=== PATIENT | male | born 1960 | race Caucasian/White ===

== ENCOUNTER 2024-12-06 17:28 | Inpatient (IN) | payer MEDICARE, SELFPAY ==
[2024-12-06 17:29] VITALS: BP 107/72; PULSE 75; RESP 16; TEMP 36.8; O2SAT 100; BMI 22.7
--- NOTE | 2024-12-06 18:11 | US_ITS ---
PROCEDURE: TESTICULAR WITH ARTERIAL FLOW REASON FOR EXAM: 64-year-old male, concern for left scrotal mass versus abscess versus tumor. TECHNIQUE: Michael scale imaging and color and spectral Doppler analysis of the scrotal contents. COMPARISON: None. FINDINGS: RIGHT testicle: 4.6 x 1.8 x 2.8 cm Homogeneous echotexture. No intratesticular mass. Right epididymis: Moderate-sized right epididymal head cyst. Other findings: Moderate hydrocele. No large varicocele. LEFT testicle: 4.2 x 1.8 x 2.7 cm Homogeneous echotexture. No intratesticular mass. Left epididymis: Unremarkable Other findings: No hydrocele or large varicocele. Just lateral to the left testicle, there is a large palpable mass measuring 4.2 x 2.2 x 3.0 cm, with a large internal solid component measuring 2.7 x 1.7 x 1.8 cm. This demonstrates mild intra arterial vascular flow on Doppler interrogation. DOPPLER FINDINGS: Symmetric color doppler blood flow signal at both testes. Normal arterial inflow and venous outflow waveforms at both testes. US/Testicular with Arterial Flow IMPRESSION: Large palpable mass just lateral to the left testicle demonstrating internal so lid component and arterial vascular flow. Differential diagnoses for peritesticular tumors include metastatic disease, pl asmacytoma, leiomyosarcoma, or lymphoma. Surgical consultation recommended. Reading Location: [id number]
--- NOTE | 2024-12-06 18:13 | EDS_ITS ---
HPI History of Present Illness Chief Complaint: Male Pain/Injury Informant: patient Narrative Narrative: 64-year-old male presents with left scrotal mass. Patient states for decades he has had a small bump just posterior lateral to his left testicle. Is never gi yazmin him any problems but in the past month it is progressively swollen and become more painful. He is a long-term smoker. He denies any urination issues. Denies any bowel issues. He reports no fevers. PFSH PFSH Home Medications ?Medication ?Instructions ?Recorded ?Last Taken ?Type NK 12/06/24 Unknown History Allergy/AdvReac Type Severity Reaction Status Date / Time No Known Allergies Allergy Verified 12/06/24 17:28 Surgical History H/O eye surgery Social History Smoking Status: Current every day smoker tobacco type: cigarettes ROS ROS ED Constitutional Constitutional ED: Denies chills, fever(s) or weight loss Eyes Eyes: Denies change in vision or diplopia ENT ENT ED: Denies ear pain, rhinorrhea or sore throat Cardiovascular Cardiovascular: Denies chest pain, orthopnea, palpitations or racing heartbeat Respiratory/Chest Respiratory/Chest: Reports cough; Denies dyspnea or orthopnea Gastrointestinal Gastrointestinal: Denies abdominal pain, diarrhea, nausea or vomiting Genitourinary Genitourinary ED: Reports other Details: Left scrotal mass/pain ; Denies dysuria, hematuria or urinary frequency Musculoskeletal Musculoskeletal: Denies arthralgias or myalgias Integumentary Denies abscess or rash Neurologic Neurologic: Denies headache(s) or weakness Psychiatric Psychiatric: Denies anxiety, depression, suicidal ideation or suicidal thoughts Endocrine Endocrinology: Denies polydipsia, polyphagia or polyuria Allergic/Immunologic Allergic/Immunologic ED: Denies mouth swelling, tongue swelling or urticaria EXAM Physical Exam Const Vital Signs: 12/06/24 17:29 12/06/24 21:28 Temperature 98.2 F Temperature Source Temporal Pulse Rate 75 71 Respiratory Rate 16 16 Blood Pressure 107/72 110/70 Blood Pressure Mean 83 83 Pulse Ox 100 97 Oxygen Delivery Method Room Air Room Air Positive well nourished and well developed General Appearance ED: well developed and NAD HEENT Reports normocephalic, head/scalp atraumatic and moist mucous membranes Eyes PERRL and EOMs intact bilaterally Neck no lymphadenopathy, supple and no JVD Resp normal respiratory effort and clear to auscultation bilaterally Cardio regular rate, regular rhythm and no murmurs GI normal to inspection, nondistended, normoactive bowel sounds and non-tender Palpation: soft Narrative: exam was performed in the presence of female nurse no well. The testicular e xam appears normal bilaterally. He is uncircumcised. Left posterior lateral scrotal wall appears to have a large swelling of about 6 cm in nature. It is very tender to palpation. I do not appreciate any pustules on the scrotal wall. There is some mild erythema. Back/Spine no CVA tenderness and normal ROM Extremity normal to inspection General Extremety ED: Negative for edema General Extremity: Negative for edema Neuro oriented x3 and CN's II-XII intact bilaterally Sensorium / Orientation: alert Motor Exam: strength 5/5 throughout Psych mental status grossly normal Mood & Affect: Negative for depressed or tearful Skin no rashes or lesions noted and no wounds MDM MDM MDM Narrative Medical decision making narrative: Differential diagnosis includes but not limited to scrotal abscess malignancy cystocele hernia testicular torsion epididymitis orchitis Urinalysis demonstrates 5-10 white cells 5-10 red blood cells 1+ bacteria negative nitrates. A testicular ultrasound was obtained. This was read by radiology reviewed by myself. There is a large mass just lateral to the left testicle with a solid component and arterial vascular flow. This is concerning for malignancy. I updated the patient. My recommendation is that we go ahead and obtain chest and abdominal imaging to assist in surgical evaluation. He stated that he was comfortable with this. White count returns at 20.3. CT of the chest abdomen pelvis was obtained. On review of the CT imaging and the read it is felt that coupled with the rapid onset of swelling and pain the 20,000 white count and a few foci of air is most likely an abscess. I spoke with Dr. Hickey who states that he is willing to take him to surgery tomorrow. I will speak with the hospitalist regarding admission. Blood cultures were obtained and the patient received vancomycin and Zosyn. Due to computer downtime I was not able I put the vancomycin or the admission order in at the expected time. History & Record Review Discussion w/independent historian: Patient Lab Data Attestation: I reviewed the patient's lab results. Labs: Laboratory Results - last 24 hr 12/06/24 12/06/24 18:27 20:32 WBC 20.3 H RBC 4.47 L Hgb 14.3 Hct 41.3 MCV 92.4 MCH 32.0 MCHC 34.6 RDW Std Deviation 43.0 RDW Coeff of Jimi 12.7 Plt Count 466 H MPV 9.4 Immature Gran % (Auto) 1.800 H Neut % (Auto) 75.2 H Lymph % (Auto) 11.4 L Josephine % (Auto) 10.2 H Eos % (Auto) 0.8 Baso % (Auto) 0.6 Absolute Neuts (auto) 15.3 H Absolute Lymphs (auto) 2.31 Nucleated RBC % 0 Differential Comment SCANNED Diff Path Review May foll Sodium 135 L Potassium 4.0 Chloride 103 Carbon Dioxide 25.0 Anion Gap 7 BUN 12 Creatinine 0.70 Estim Creat Clear Calc 97.64 Est GFR (MDRD) Af Amer 145 Est GFR (MDRD) Non-Af 119 BUN/Creatinine Ratio 17.1 Glucose 87 Calcium 8.8 Total Bilirubin 0.30 Direct Bilirubin 0.12 AST 19 ALT 29 Alkaline Phosphatase 92 Total Protein 7.3 Albumin 2.9 L Globulin 4.4 H Urine Color Yellow Urine Clarity Clear Urine pH 6.0 Ur Specific [place] 1.020 Urine Protein 30 H Urine Glucose (UA) Normal Urine Ketones Negative Urine Occult Blood 25 H Urine Nitrite Negative Urine Bilirubin Negative Urine Urobilinogen 8 H Ur Leukocyte Esterase 25 H Urine RBC 5-10 SEEN Urine WBC 5-10 SEEN Ur Squamous Epith Cells 0-5 SEEN Urine Bacteria 1+ Urine Mucus 2+ Radiography Diagnostic Testing: Clinical Impression(s) from Imaging Studies Testicular Ultrasound 12/06/24 18:11 IMPRESSION: Large palpable mass just lateral to the left testicle demonstrating internal solid component and arterial vascular flow. Differential diagnoses for peritesticular tumors include metastatic disease, plasmacytoma, leiomyosarcoma, or lymphoma. Surgical consultation recommended. Reading Location: [facility] Chest/Abdomen/Pelvis CT 12/06/24 20:16 IMPRESSION: 1. Thick-walled peripherally enhancing fluid collection in the left lateral scrotum containing a couple foci of gas and complex internal debris. Findings concerning for abscess. surgical consultation recommended. 2. Mildly prominent bilateral inguinal chain lymph nodes which may be reactive. No other adenopathy. 3. Mild reticulonodular opacities in the left upper lobe, likely infectious/inflammatory. 4. Several scattered bilateral punctate pulmonary nodules, largest measuring 4 mm in the left upper lobe. 12 month follow-up can be performed to ensure stability. 5. Enlarged prostate protruding into the bladder base. Correlate with PSA level. One or more dose reduction techniques were used (e.g., Automated exposure control, adjustment of the mA and/or kV according to patient size, use of iterative reconstruction technique). Reading Location: [facility] Management Discussion w/another healthcare provider: Hospitalist (Dr Fang) and [facility] (Dr Hickey) Discharge Plan Dx/Rx/DC Orders Clinical Impression: Abscess, scrotum, Pain in scrotum Disposition Disposition: Acute Care Hospital [facility]
[2024-12-06] MEDS: oxyCODONE 5 MG Tablet 10 MG PO (18:17)
[2024-12-06 18:35] LABS: Color, Urine Yellow (Yellow); Glucose, Dipstick Normal (Normal); Ketone-Dipstick Negative (Negative); Leukocyte Esterase-Dipstick 25 /ul (Negative); Nitrite-Dipstick Negative (Negative); Occult Blood-Urine 25 /ul (Negative); Protein-Dipstick 30 mg/dl (Negative); Urine Bilirubin Dipstick Negative (Negative); Urine Clarity Clear (Clear); Urine Urobilinogen 8 mg/dl (Normal)
[2024-12-06 18:52] LABS: Bacteria 1+ /hpf (None Seen); Mucous, Urine 2+ /hpf (<or=2+); Red Blood Cells-Urine 5-10 SEEN /hpf (0-5); Squamous Epithelial Cells - UA 0-5 SEEN /hpf (0-5); White Blood Cells 5-10 SEEN /hpf (0-5)
--- NOTE | 2024-12-06 20:16 | CT_ITS ---
PROCEDURE: CT CHEST, ABD, PEL W/CONTRAST REASON FOR EXAM: Testicular mass, metastatic disease TECHNIQUE: Multiple contiguous axial images of the chest abdomen and pelvis were obtained after the administration of intravenous contrast. Two-dimensional coronal and sagittal reformatted images were reconstructed. Low-dose imaging technique was utilized. COMPARISON: None. FINDINGS: Chest. Heart size is within normal limits. Mild LAD coronary artery calcifications. No significant pericardial effusion. Mildly calcified nonaneurysmal thoracic aorta. Normal caliber pulmonary arteries without central filling defects. No suspicious adenopathy. Superficial soft tissues are within normal limits. Central airways are patent. Mild emphysema. Mild reticulonodular opacities in the left apex. No focal consolidation, pleural effusion or pneumothorax. No pulmonary mass. Several scattered small bilateral pulmonary nodules, largest in the right upper lobe measuring 3 mm and largest in the left upper lobe measuring 4 mm. No acute osseous abnormality. Abdomen/pelvis. Liver, spleen, and adrenal glands are intact. Gallbladder is satisfactory. No significant biliary ductal dilation. Kidneys enhance symmetrically. No suspicious renal mass, calculi or hydronephrosis. Mild diffuse bladder wall thickening. Enlarged prostate with a small associated nodule protruding into the bladder base. No bowel obstruction, focal bowel wall thickening or significant perienteric inflammation. Normal appendix. No pelvic free fluid. No free air. Calcified nonaneurysmal abdominal aorta. No suspicious mesenteric or retroperitoneal adenopathy. Several prominent bilateral cervical chain lymph nodes. Diffuse scrotal wall thickening. Peripherally enhancing thick-walled fluid collection in the left lateral scrotum measuring at least 3.7 x 2.7 x 3.2 cm containing a couple foci of gas. Some complex internal debris noted. Right epididymal head cyst. No acute osseous abnormality. Degenerative changes of the spine. CT/CT Chest, Abd, Pel w/Contrast IMPRESSION: 1. Thick-walled peripherally enhancing fluid collection in the left lateral scr otum containing a couple foci of gas and complex internal debris. Findings concerning for abscess. surgical consultation re commended. 2. Mildly prominent bilateral inguinal chain lymph nodes which may be reactive. No other adenopathy. 3. Mild reticulonodular opacities in the left upper lobe, likely infectious/inf lammatory. 4. Several scattered bilateral punctate pulmonary nodules, largest measuring 4 mm in the left upper lobe. 12 month follow-up can be performed to ensure stability. 5. Enlarged prostate protruding into the bladder base. Correlate with PSA leve l. One or more dose reduction techniques were used (e.g., Automated exposure contr ol, adjustment of the mA and/or kV according to patient size, use of iterative reconstruction technique). Reading Location: [facility]
[2024-12-06] MEDS: Morphine 4 MG/ML Syringe IV (20:30)
[2024-12-06] MEDS: Ondansetron 4 MG/2 ML Vial IV (20:31)
[2024-12-06 21:01] LABS: AST(SGOT) 19 U/L (15-37); Alanine Aminotransfer ALT/SGPT 29 U/L (16-61); Albumin, Serum 2.9 g/dL (3.2-5.0); Alkaline Phosphatase 92 U/L (45-117); Anion Gap 7 (5-15); BUN 12 mg/dL (7-18); BUN/Creat Ratio 17.1 RATIO (10-20); Bilirubin, Direct 0.12 mg/dL (0.00-0.30); Calcium,Total 8.8 mg/dL (8.5-10.1); Chloride 103 mmol/L (98-107); EST Glomerular Filtration Rate 119 mL/min (>60); Est Glom Filt Rate - Afr Amer 145 mL/min (>60); Estimated Creatinine Clearance 97.64 ml/min; Globulin 4.4 g/dL (2.2-4.2); Glucose 87 mg/dL (74-106); Protein, Total 7.3 g/dL (6.4-8.2); Sodium Level 135 mmol/L (136-145)
[2024-12-06 21:10] LABS: Absolute Lymphocyte Count 2.31 X10^3/uL (0.83-4.51); Absolute Neutrophil Count 15.3 X10^3/uL (2.0-7.7); Basophil# 0.12 X10^3/uL; Basophil% 0.6 % (0-1); Eosinophil# 0.16 X10^3/uL; Eosinophils% 0.8 % (0-5); Hematocrit 41.3 % (40-54); Hemoglobin 14.3 g/dL (13.0-16.5); Lymphocyte # 2.31 X10^3/ul (0.83-4.51); Lymphocyte % 11.4 % (19-41); Mean Corp Hgb Conc 34.6 g/dL (32-36); Mean Corpuscular Volume 92.4 fL (80-94); Mean Platelet Vol. 9.4 fl (6.2-12.0); Monocyte# 2.08 X10^3/uL; Monocyte% 10.2 % (0-10); NRBC Flagged by Analyzer 0 % (0-5); Neutrophil # 15.26 X10^3/uL (2.7-7.7); Neutrophil % 75.2 % (47-70); POSITIVE DIFFERENTIAL YES; Platelet Count 466 K/mm3 (150-450); RBC Distribution Width CV 12.7 % (11.6-14.6); Red Blood Count 4.47 M/mm3 (4.6-6.2); White Blood Count 20.3 K/mm3 (4.4-11.0)
[2024-12-06 21:16] LABS: Differential Indicated SCAN CRITERIA MET
[2024-12-06 21:28] VITALS: BP 110/70; PULSE 71; RESP 16; O2SAT 97
[2024-12-06 21:38] LABS: Differential Comment SCANNED
[2024-12-06] MEDS: Piperacil/Tazobactam 4.5 GM in 0.9% Normal Saline (100mL MB+) 100 ML IV (22:10)
--- NOTE | 2024-12-06 22:33 | PCM.HP.STD ---
[facility] - General General Date of Admission: 12/06/24 Date of Service: 12/06/24 Chief Complaint: Left Scrotal Swelling. HPI Narrative ANA TAPIA, is a 64 M with a past medical history of chronic tobacco abuse and history of eye surgery who presents to [facility] ER complaining of Left scrotal swelling. Mr. Tapia reports his symptoms began approximately 1 month prior to admission with a small bump just posterior and lateral to his Left testicle that has been progressively enlarged and become more painful since that time. Patient further explained that he has had a small bump lateral to his left testicle for decades it is not giving him problems in the past or any similar previous episodes. He denies dysuria, hematuria or urinary frequency. He also denies fevers, chills, abdominal pain, nausea, vomiting, diarrhea, chest pain, arthralgias, myalgias, headache or rash. In the ER he underwent testicular ultrasound which revealed large palpable mass just lateral to his left testicle demonstrating internal solid component and arterial vascular flow with differential diagnosis including peritesticular tumors with urologist consultation recommended followed by a CT scan of the chest abdomen pelvis which revealed thick-wall peripherally enhancing fluid collection in the left lateral scrotum containing multiple foci of gas and complex internal debris with findings concerning for abscess with surgical consultation recommended in addition to mildly prominent bilateral inguinal chain lymph nodes which may be reactive with UA positive for acute cystitis; with microscopic hematuria with corresponding laboratory evidence of Sepsis with Leukocytosis of 20.3 K and Left-shift of 1.8% present on admission. The ER physician spoke to the urologist on-call who requested patient be admitted to the hospitalist service with planned surgical intervention in a.m. and appreciated in advance. Patient was then admitted to the ICU for ongoing care for a stay that is expected to extend beyond 2 midnights. PFSH Home Medications ?Medication ?Instructions ?Recorded ?Last Taken ?Type NK 12/06/24 Unknown History Allergy/AdvReac Type Severity Reaction Status Date / Time No Known Allergies Allergy Verified 12/06/24 17:28 Surgical History H/O eye surgery Social History Smoking Status: Current every day smoker tobacco type: cigarettes ROS ROS Narrative Review of Systems: Constitutional: Patient denies fever, chills or weight loss. Eyes: Patient denies changes in vision or discharge from eyes. ENT: Patient denies runny nose, sore throat or ear pain. Resp: Patient admits to cough but he denies shortness of breath. CV: Patient denies chest pain, palpitations, heart racing or lower extremity edema. GI: Patient denies abdominal pain, nausea, vomiting, diarrhea or constipation. : Patient admits to left scrotal mass with tenderness to palpation but he denies dysuria, hematuria or urinary frequency. MSK: Patient denies arthralgias or myalgias Skin: Patient denies rash, abscess, wounds or jaundice. Psych: Patient denies symptoms of uncontrolled depression or anxiety. Neuro: Patient denies headache, paresthesias or focal neurologic deficits. Allergy: Patient denies lip swelling, tongue swelling or urticaria. Hematology: Patient denies easy bleeding or easy bruisability. Endocrinology: Patient denies polyuria, polydipsia or polyphagia. 14 point review of systems otherwise negative save for positives noted above HPI. Vital Signs Vital Signs Vital Signs: 12/06/24 17:29 12/06/24 21:28 Temperature 98.2 F Temperature Source Temporal Pulse Rate 75 71 Respiratory Rate 16 16 Blood Pressure 107/72 110/70 Blood Pressure Mean 83 83 Pulse Ox 100 97 Oxygen Delivery Method Room Air Room Air Weight Weight: 167 lb 8.821 oz Body Mass Index (BMI) 22.7 Physical Exam Const alert, oriented x3, no apparent distress, average body habitus and healthy appearing General Appearance: cooperative HEENT normocephalic, head/scalp atraumatic, hearing grossly normal bilaterally and moist oral mucous membranes Eyes PERRL, EOMs intact bilaterally and conjunctivae normal Neck no lymphadenopathy, supple and no JVD Resp normal respiratory effort, no retractions, no use of accessory muscles and clear to auscultation bilaterally Cardio regular rate and regular rhythm GI normal to inspection, nondistended, normoactive bowel sounds, soft to palpation, non-tender and non-distended Extremity normal to inspection, full ROM and no clubbing, cyanosis or edema Skin Skin Narrative: Patient is uncircumcised and has a left posterior lateral scrotal wall swelling ~6 cm with exquisite tenderness noted to palpation and mild erythema. Neuro oriented x3, CN's II-XII intact bilaterally, moves all extremities and no focal motor deficits Sensorium / Orientation: awake, alert, oriented to person, oriented to place and oriented to time Speech: speech normal Psych affect normal Results Medical Records Data Attestation: I reviewed the patient's medical records Lab / Micro Data Attestation: I reviewed the patient's lab results. 12/06/24 20:32 12/06/24 20:32 Labs: Laboratory Results - last 24 hr 12/06/24 18:27: Urine Color Yellow, Urine Clarity Clear, Urine pH 6.0, Ur Specific [place] 1.020, Urine Protein 30 H, Urine Glucose (UA) Normal, Urine Ketones Negative, Urine Occult Blood 25 H, Urine Nitrite Negative, Urine Bilirubin Negative, Urine Urobilinogen 8 H, Ur Leukocyte Esterase 25 H, Urine RBC 5-10 SEEN, Urine WBC 5-10 SEEN, Ur Squamous Epith Cells 0-5 SEEN, Urine Bacteria 1+, Urine Mucus 2+ 12/06/24 20:32: WBC 20.3 H, RBC 4.47 L, Hgb 14.3, Hct 41.3, MCV 92.4, MCH 32.0, MCHC 34.6, RDW Std Deviation 43.0, RDW Coeff of Jimi 12.7, Plt Count 466 H, MPV 9.4, Immature Gran % (Auto) 1.800 H, Neut % (Auto) 75.2 H, Lymph % (Auto) 11.4 L, [place] % (Auto) 10.2 H, Eos % (Auto) 0.8, Baso % (Auto) 0.6, Absolute Neuts (auto) 15.3 H, Absolute Lymphs (auto) 2.31, Nucleated RBC % 0, Differential Comment SCANNED, Diff Path Review February, Sodium 135 L, Potassium 4.0, Chloride 103, Carbon Dioxide 25.0, Anion Gap 7, BUN 12, Creatinine 0.70, Estim Creat Clear Calc 97.64, Est GFR (MDRD) Af Amer 145, Est GFR (MDRD) Non-Af 119, BUN/Creatinine Ratio 17.1, Glucose 87, Calcium 8.8, Total Bilirubin 0.30, Direct Bilirubin 0.12, AST 19, ALT 29, Alkaline Phosphatase 92, Total Protein 7.3, Albumin 2.9 L, Globulin 4.4 H Imaging Radiology Impression Testicular Ultrasound 12/06/24 18:11 IMPRESSION: Large palpable mass just lateral to the left testicle demonstrating internal solid component and arterial vascular flow. Differential diagnoses for peritesticular tumors include metastatic disease, plasmacytoma, leiomyosarcoma, or lymphoma. Surgical consultation recommended. Reading Location: [facility] Chest/Abdomen/Pelvis CT 12/06/24 20:16 IMPRESSION: 1. Thick-walled peripherally enhancing fluid collection in the left lateral scrotum containing a couple foci of gas and complex internal debris. Findings concerning for abscess. surgical consultation recommended. 2. Mildly prominent bilateral inguinal chain lymph nodes which may be reactive. No other adenopathy. 3. Mild reticulonodular opacities in the left upper lobe, likely infectious/inflammatory. 4. Several scattered bilateral punctate pulmonary nodules, largest measuring 4 mm in the left upper lobe. 12 month follow-up can be performed to ensure stability. 5. Enlarged prostate protruding into the bladder base. Correlate with PSA level. One or more dose reduction techniques were used (e.g., Automated exposure control, adjustment of the mA and/or kV according to patient size, use of iterative reconstruction technique). Reading [facility] Assessment & Plan Assessment/Plan (1) Abscess, scrotum: (2) Pain in scrotum: (3) Acute cystitis with hematuria: (4) Tobacco abuse: PLAN: Plan 1. CT scan of the chest abdomen pelvis which revealed thick-wall peripherally enhancing fluid collection in the Left lateral scrotum containing multiple foci of gas and complex internal debris with findings concerning for Abscess with surgical consultation recommended in addition to mildly prominent bilateral inguinal chain lymph nodes which may be reactive with UA positive for Acute Cystitis; with microscopic hematuria with corresponding laboratory evidence of Sepsis with Leukocytosis of 20.3 K and Left-shift of 1.8% present on admission - Admit to ICU for treatment under the Sepsis protocol. Continue empiric IV piperacillin-tazobactam and IV vancomycin begun in the ER and await culture and sensitivity data. Keep strict NPO for planned urologic surgery in the AM. Give ketorolac prn for [id number] (level 1-5/10) pain. Give morphine IV prn for severe (level 6-10/10) pain. Finally, urologist on-call was made aware of this patient with formal consultation pending in the AM which is appreciated in advance. 2. Chronic Tobacco Abuse complicating #1 - Tobacco Cessation will be strongly encouraged with Nicotine patch offered to control cravings. 3. History of eye surgery - Noted. 4. DVT/GI prophylaxis - SCD's only due to planned surgery in AM. Pantoprazole IV daily. Total time: Approximately (but not less than) 40 minutes. Charges/Coding Visit Charges Inpatient E&M: 06893 Init Hosp L1
[2024-12-06 22:42] VITALS: BP 138/92; PULSE 79; RESP 14; TEMP 36.9; O2SAT 99
[2024-12-06 22:43] VITALS: BP 138/92; PULSE 79; RESP 17; TEMP 36.9; O2SAT 98
[2024-12-06] MEDS: Vancomycin HCl 1,250 MG in 0.9% Normal Saline (250mL Bag) 250 ML 167 MG IV (23:07)
[2024-12-06 23:24] LABS: Lactic Acid 1.5 mmol/L (0.4-1.9)
[2024-12-06 23:54] VITALS: BP 117/67; PULSE 61; RESP 14; TEMP 36.6; O2SAT 98; BMI 22.4
[2024-12-07] VITALS (19 sets, daily range): BP systolic 85–130; BP diastolic 47–99; PULSE 60–82; RESP 14–18; TEMP 36.3–36.9; O2SAT 92–97; BMI 20.4
[2024-12-07] MEDS: 0.9% Normal Saline (1000mL) 1,000 ML 999 ML IV ×2 (00:41→02:16)
--- NOTE | 2024-12-07 00:55 | PCM.RX.CS ---
Consult Antibiotic Management Pharmacy has been consulted to manage selected antibiotic: Vancomycin Type of Intervention Type of Consult: New start Labs Labs: Sodium 135 mmol/L (136-145) L 12/06/24 20:32 Potassium 4.0 mmol/L (3.5-5.1) 12/06/24 20:32 Chloride 103 mmol/L (98-107) 12/06/24 20:32 Carbon Dioxide 25.0 mmol/L (21.0-32.0) 12/06/24 20:32 Anion Gap 7 (5-15) 12/06/24 20:32 BUN 12 mg/dL (7-18) 12/06/24 20:32 Creatinine 0.70 mg/dL (0.70-1.30) 12/06/24 20:32 Est GFR (MDRD) Af Amer 145 mL/min (>60) 12/06/24 20:32 Est GFR (MDRD) Non-Af 119 mL/min (>60) 12/06/24 20:32 BUN/Creatinine Ratio 17.1 RATIO (10-20) 12/06/24 20:32 Glucose 87 mg/dL (74-106) 12/06/24 20:32 Dosing Weight Weight used for dosin.2 kg Estimated Creatinine Clearance Estimated Creatinine Clearance: 98 Goal Trough Goal Trough: 15-20 mcg/mL Pharmacy Plan for Drug Dosing Pharmacy Plan for Drug Dosing: Pharmacy Service will continue to monitor and adjust dosing as required. Follow-Up Labs Follow-Up Labs: Trough: Vancomycin Date/Time Labs Ordered Labs to be done on [date and time ordered]: 12/08/24 @1037
[2024-12-07] MEDS: Piperacil/Tazobactam 3.375 GM in 0.9% Normal Saline (50mL MB+) 50 ML IV ×3 (05:04→22:52)
--- NOTE | 2024-12-07 06:54 | PCM.PN.HOSP ---
Subjective Subjective Had been dealing the scrotal swelling and pain for weeks, but he was reluctant to seek attention given embarrassment. Objective Data Objective Data Vital Signs: Vital Signs Temp Pulse Resp BP Pulse Ox O2 Del Method 36.9 C 63 16 97/57 L 92 Room Air 12/07/24 06:00 12/07/24 06:00 12/07/24 06:00 12/07/24 06:00 12/07/24 06:00 12/07/24 06:00 Oxygen Delivery Method Room Air Weight: 68.2 kg Body Mass Index (BMI) 20.4 Intake & Output: Intake and Output for Last 24 Hours 12/05/24 12/06/24 12/07/24 23:59 23:59 23:59 Intake Total 100 / 100 2275 / 2275 Balance 100 / 100 2275 / 2275 Lab / Micro Data 12/07/24 10:15 12/06/24 20:32 Labs: Laboratory Results - last 24 hr 12/06/24 18:27: Urine Color Yellow, Urine Clarity Clear, Urine pH 6.0, Ur Specific [place] 1.020, Urine Protein 30 H, Urine Glucose (UA) Normal, Urine Ketones Negative, Urine Occult Blood 25 H, Urine Nitrite Negative, Urine Bilirubin Negative, Urine Urobilinogen 8 H, Ur Leukocyte Esterase 25 H, Urine RBC 5-10 SEEN, Urine WBC 5-10 SEEN, Ur Squamous Epith Cells 0-5 SEEN, Urine Bacteria 1+, Urine Mucus 2+ 12/06/24 20:32: WBC 20.3 H, RBC 4.47 L, Hgb 14.3, Hct 41.3, MCV 92.4, MCH 32.0, MCHC 34.6, RDW Std Deviation 43.0, RDW Coeff of Jimi 12.7, Plt Count 466 H, MPV 9.4, Immature Gran % (Auto) 1.800 H, Neut % (Auto) 75.2 H, Lymph % (Auto) 11.4 L, [place] % (Auto) 10.2 H, Eos % (Auto) 0.8, Baso % (Auto) 0.6, Absolute Neuts (auto) 15.3 H, Absolute Lymphs (auto) 2.31, Nucleated RBC % 0, Differential Comment SCANNED, Diff Path Review February, Sodium 135 L, Potassium 4.0, Chloride 103, Carbon Dioxide 25.0, Anion Gap 7, BUN 12, Creatinine 0.70, Estim Creat Clear Calc 97.64, Est GFR (MDRD) Af Amer 145, Est GFR (MDRD) Non-Af 119, BUN/Creatinine Ratio 17.1, Glucose 87, Calcium 8.8, Total Bilirubin 0.30, Direct Bilirubin 0.12, AST 19, ALT 29, Alkaline Phosphatase 92, Total Protein 7.3, Albumin 2.9 L, Globulin 4.4 H 12/06/24 22:53: Lactic Acid 1.5 12/07/24 01:00: Blood Type A POSITIVE, Antibody Screen NEGATIVE Radiography Diagnostic Testing: Radiology Impression Testicular Ultrasound 12/06/24 18:11 IMPRESSION: Large palpable mass just lateral to the left testicle demonstrating internal solid component and arterial vascular flow. Differential diagnoses for peritesticular tumors include metastatic disease, plasmacytoma, leiomyosarcoma, or lymphoma. Surgical consultation recommended. Reading Location: [facility] Chest/Abdomen/Pelvis CT 12/06/24 20:16 IMPRESSION: 1. Thick-walled peripherally enhancing fluid collection in the left lateral scrotum containing a couple foci of gas and complex internal debris. Findings concerning for abscess. surgical consultation recommended. 2. Mildly prominent bilateral inguinal chain lymph nodes which may be reactive. No other adenopathy. 3. Mild reticulonodular opacities in the left upper lobe, likely infectious/inflammatory. 4. Several scattered bilateral punctate pulmonary nodules, largest measuring 4 mm in the left upper lobe. 12 month follow-up can be performed to ensure stability. 5. Enlarged prostate protruding into the bladder base. Correlate with PSA level. One or more dose reduction techniques were used (e.g., Automated exposure control, adjustment of the mA and/or kV according to patient size, use of iterative reconstruction technique). [facility] Physical Exam Const alert and no apparent distress Constitutional Narrative: left sided scrotal erythema and induration. HEENT head/scalp atraumatic and moist oral mucous membranes Cardio regular rate, regular rhythm, S1 normal heart sound and S2 normal heart sound GI normal to inspection, nondistended, normoactive bowel sounds, soft to palpation, non-tender, non-distended and hepatosplenomegaly Extremity normal to inspection, full ROM and no clubbing, cyanosis or edema Neuro Sensorium / Orientation: awake, alert, oriented to person and oriented to place Assessment & Plan Assessment/Plan (1) Abscess, scrotum: PLAN: CT notes 2.7x3.2 fluid collection with foci of gas abx w pip/tazo and vancomycin consultation. Pt that have surgery this afternoon. Follow up blood cultures. PLAN: Plan VTE prophylaxis: SCDs. Charges/Coding Visit Charges Inpatient E&M: 66492 Subs Hosp L2
--- NOTE | 2024-12-07 07:54 | CON.PCM.CC_ITS ---
Assessment & Plan Assessment/Plan (1) Abscess, scrotum: PLAN: Plan RECOMMENDATIONS: 1. Antimicrobials as ordered. 2. Urology evaluation plan with surgical intervention. 3. Obtain follow-up morning labs. 4. Continue nicotine replacement therapy, if needed. 5. Start as needed bronchodilators. 6. The patient has no current ICU needs. Will sign off from a critical care perspective. IMPRESSIONS: 1. Suspected scrotal abscess The patient presented to the hospital with an enlarging left scrotal lesion, concerning for abscess on imaging. Consultation was subsequently placed to urology. While the patient did have an elevated white blood cell count at presentation, sepsis criteria was never met. The patient remains afebrile, hemodynamically stable and is maintaining appropriate oxygen saturations on room air. I agree with continuing empiric antibiotics for now, pending surgical evaluation by urology later today. 2. Chronic tobacco dependency Smoking cessation is advisable. Outpatient pulmonary follow-up after discharge can be offered to the patient. Okay to continue nicotine replacement therapy while admitted to the hospital. Will start as needed bronchodilators, if needed. This note was generated with [employer] dictation software. It may contain incorrect words, spelling, and punctuation that were not noted in checking the note before signing. HPI Consult Data Date of Consult: 12/07/24 HPI Narrative HPI Narrative: The patient is a 64-year-old male, with a history as outlined below, who presented to the emergency department on December 06 with complaints of an enlarging, painful left scrotal mass. The patient reported that this lesion has been present for years but has been progressively increasing in size. The patient does have a chronic tobacco abuse history, but has never been formally diagnosed with COPD. He currently denies any respiratory related symptoms. On presentation to the emergency department, the patient was documented to be afebrile and hemodynamically stable. He was maintaining appropriate oxygen saturations on room air. Laboratory evaluation was notable for a white blood cell count of 20,000. Chemistry profile was unrevealing. Lactate was within normal limits. Urine analysis was positive for leukocyte esterase and 1+ urine bacteria. Blood and urine cultures were collected. The patient was started on antimicrobials with consultation placed to urology. CT chest/abdomen/pelvis demonstrated a thick-walled peripherally enhancing fluid collection in the left lateral scrotum concerning for abscess. Overnight, the patient has remained clinically stable. He is resting comfortably in bed without any specific complaints. Tentatively, there are plans for the patient to be taken to surgery by urology later this afternoon. [facility] Home Medications ?Medication ?Instructions ?Recorded ?Last Taken ?Type NK 12/06/24 Unknown History Allergy/AdvReac Type Severity Reaction Status Date / Time No Known Allergies Allergy Verified 12/06/24 17:28 Surgical History H/O eye surgery Social History Smoking Status: Current every day smoker tobacco type: cigarettes ROS ROS Narrative 10 systems were reviewed with pertinent positives as noted in the HPI above. Physical Exam Const alert, oriented x3 and no apparent distress General Appearance: cooperative HEENT normocephalic, head/scalp atraumatic and moist oral mucous membranes Eyes PERRL, EOMs intact bilaterally and conjunctivae normal Neck supple General: trachea midline Chest inspection of chest normal Resp normal respiratory effort Auscultation: diminished lung sounds; Negative for rales, rhonchi or wheezes Cardio regular rate and regular rhythm GI normal to inspection, nondistended, normoactive bowel sounds Narrative: Left lateral scrotal swelling Extremity no clubbing, cyanosis or edema Skin no rashes or lesions noted Neuro CN's II-XII intact bilaterally, moves all extremities and no focal motor deficits Psych cooperative and affect normal Lab / Micro Data 12/06/24 20:32 12/06/24 20:32 Labs: Laboratory Results - last 24 hr 12/06/24 18:27: Urine Color Yellow, Urine Clarity Clear, Urine pH 6.0, Ur Specific [place] 1.020, Urine Protein 30 H, Urine Glucose (UA) Normal, Urine Ketones Negative, Urine Occult Blood 25 H, Urine Nitrite Negative, Urine Bilirubin Negative, Urine Urobilinogen 8 H, Ur Leukocyte Esterase 25 H, Urine RBC 5-10 SEEN, Urine WBC 5-10 SEEN, Ur Squamous Epith Cells 0-5 SEEN, Urine Bacteria 1+, Urine Mucus 2+ 12/06/24 20:32: WBC 20.3 H, RBC 4.47 L, Hgb 14.3, Hct 41.3, MCV 92.4, MCH 32.0, MCHC 34.6, RDW Std Deviation 43.0, RDW Coeff of Jimi 12.7, Plt Count 466 H, MPV 9.4, Immature Gran % (Auto) 1.800 H, Neut % (Auto) 75.2 H, Lymph % (Auto) 11.4 L , [place] % (Auto) 10.2 H, Eos % (Auto) 0.8, Baso % (Auto) 0.6, Absolute Neuts (auto) 15.3 H, Absolute Lymphs (auto) 2.31, Nucleated RBC % 0, Differential Comment SCANNED, Diff Path Review February foll, Sodium 135 L, Potassium 4.0, Chloride 103, Carbon Dioxide 25.0, Anion Gap 7, BUN 12, Creatinine 0.70, Estim Creat Clear Calc 97.64, Est GFR (MDRD) Af Amer 145, Est GFR (MDRD) Non-Af 119, BUN/Creatinine Ratio 17.1, Glucose 87, Calcium 8.8, Total Bilirubin 0.30, Direct Bilirubin 0.12, AST 19, ALT 29, Alkaline Phosphatase 92, Total Protein 7.3, A lbumin 2.9 L, Globulin 4.4 H 12/06/24 22:53: Lactic Acid 1.5 12/07/24 01:00: Blood Type A POSITIVE, Antibody Screen NEGATIVE Imaging Radiology Impression Testicular Ultrasound 12/06/24 18:11 IMPRESSION: Large palpable mass just lateral to the left testicle demonstrating internal solid component and arterial vascular flow. Differential diagnoses for peritesticular tumors include metastatic disease, plasmacytoma, leiomyosarcoma, or lymphoma. Surgical consultation recommended. Reading Location: [facility] Chest/Abdomen/Pelvis CT 12/06/24 20:16 IMPRESSION: 1. Thick-walled peripherally enhancing fluid collection in the left lateral scrotum containing a couple foci of gas and complex internal debris. Findings concerning for abscess. surgical consultation recommended. 2. Mildly prominent bilateral inguinal chain lymph nodes which may be reactive. No other adenopathy. 3. Mild reticulonodular opacities in the left upper lobe, likely infectious/inflammatory. 4. Several scattered bilateral punctate pulmonary nodules, largest measuring 4 mm in the left upper lobe. 12 month follow-up can be performed to ensure stability. 5. Enlarged prostate protruding into the bladder base. Correlate with PSA level. One or more dose reduction techniques were used (e.g., Automated exposure control, adjustment of the mA and/or kV according to patient size, use of iterative reconstruction technique). Reading Location: [facility] Charges/Coding Visit Charges Inpatient E&M: 21752 Init Hosp L2
[2024-12-07] MEDS: Morphine 2 MG/ML Syringe IV (08:07)
--- NOTE | 2024-12-07 09:40 | CASEMGMT ---
HARDY SEYMOUR Assessment Face to Face with patient for initial transition planning/care coordination assessment. HARDY SEYMOUR introduced self and role at [facility], pt voices understanding. Pt is A&Ox4 and is resting comfortably in bed and is calm. Care providers, pharmacy, and demographics verified. Admitting dx: Sepsis, Scrotal Abscess, Acute Cystitis LACE Strata: 1 PCP: Pt states that he used to see Dr Ellis Berry before he passed. Pt states that he now can see his son, Flako Berry if he needs but has not had to go to the doctor in a while. Specialists: Denies Preferred Pharmacy: [facility]: [facility] A/B only. Tameka has seen the pt for further assistance if needed. Prescription Benefit: Pt educated about Good Rx. Pt states that he normally does not take any medications LNOK: Nadine (W), Hieu and Beny Escobedo (Parents) Living Arrangements: Pt lives with his and 18 y/o GD in a ranch style home with one step to enter ADLs/IADLs: Ind Transportation: Self, . Denies concerns DME: Denies all DME uses or needs HHC/SNF: Denies Hx or needs Pt?s goal: Home Plan: Anticipate home no needs. Pt 6-Click score is 24 and therapy is not needed or ordered. Pt states that he feels safe returning home with his family once he is medically ready and states that he will be able to car fo himself at home. Pt is scheduled for surgery today. Pt educated about the [facility] if it is warranted post surgery. Pt states understanding but does not anticipate the need. Pt denies further questions or concerns at this time. Justin Escobedo RN, CM
[2024-12-07] MEDS: Pantoprazole Sodium 40 MG in 0.9% Normal Saline (100mL MB+) 100 ML 330 MG IV (09:43)
[2024-12-07 10:30] LABS: Absolute Lymphocyte Count 1.58 X10^3/uL (0.83-4.51); Absolute Neutrophil Count 12.5 X10^3/uL (2.0-7.7); Basophil# 0.07 X10^3/uL; Basophil% 0.4 % (0-1); Eosinophil# 0.12 X10^3/uL; Eosinophils% 0.7 % (0-5); Hematocrit 37.9 % (40-54); Lymphocyte # 1.58 X10^3/ul (0.83-4.51); Lymphocyte % 9.8 % (19-41); Mean Corp Hgb Conc 34.3 g/dL (32-36); Mean Corpuscular Hgb 31.7 pg (27.0-32.0); Mean Corpuscular Volume 92.4 fL (80-94); Monocyte# 1.53 X10^3/uL; Monocyte% 9.5 % (0-10); NRBC Flagged by Analyzer 0 % (0-5); Neutrophil # 12.51 X10^3/uL (2.7-7.7); Neutrophil % 77.6 % (47-70); POSITIVE DIFFERENTIAL YES; Platelet Count 423 K/mm3 (150-450); RBC Distribution Width CV 12.8 % (11.6-14.6); RBC Distribution Width SD 43.8 fl (35.1-43.9); White Blood Count 16.1 K/mm3 (4.4-11.0)
[2024-12-07 10:36] LABS: Differential Indicated SCAN CRITERIA MET
[2024-12-07] MEDS: Vancomycin HCl 1,500 MG in 0.9% Normal Saline (500mL Bag) 500 ML 250 MG IV (10:51)
[2024-12-07 10:57] LABS: Anion Gap 5 (5-15); BUN 9 mg/dL (7-18); BUN/Creat Ratio 12.2 RATIO (10-20); Calcium,Total 8.6 mg/dL (8.5-10.1); Chloride 103 mmol/L (98-107); Creatinine, Serum 0.74 mg/dL (0.70-1.30); EST Glomerular Filtration Rate 113 mL/min (>60); Est Glom Filt Rate - Afr Amer 137 mL/min (>60); Estimated Creatinine Clearance 87.62 ml/min; Glucose 87 mg/dL (74-106); Potassium 3.9 mmol/L (3.5-5.1); Sodium Level 134 mmol/L (136-145)
[2024-12-07 11:13] LABS: Differential Comment SCANNED; Platelet Estimate SLT INC (ADEQ); Red Cell Morphology NORM C+C NORMAL (NORM C&C)
--- NOTE | 2024-12-07 11:24 | PCM.CONS.U ---
Assessment & Plan Assessment/Plan (1) Pain in scrotum: (2) Abscess, scrotum: PLAN: Washout of scrotum today under anesthesia. HPI Consult Data Date of Consult: 12/07/24 HPI Narrative Reason for Consultation: Scrotal abscess and infection sepsis HPI Narrative: ANA TAPIA, is a 64 M who presents to the hospital with a swelling in the scrotum and abscess by CAT scan he is in the ICU with sepsis he is n.p.o. plan to take him to surgery today for scrotal washout. PFSH Home Medications ?Medication ?Instructions ?Recorded ?Last Taken ?Type NK 12/06/24 Unknown History Allergy/AdvReac Type Severity Reaction Status Date / Time No Known Allergies Allergy Verified 12/06/24 17:28 Surgical History H/O eye surgery Social History Smoking Status: Current every day smoker tobacco type: cigarettes Physical Exam Const alert and oriented x3 General Appearance: cooperative HEENT normocephalic and head/scalp atraumatic Eyes PERRL and EOMs intact bilaterally Neck supple, no JVD and no carotid bruits Resp normal respiratory effort, normal air movement and clear to auscultation bilaterally Cardio regular rate and no murmurs GI normal to inspection, nondistended, normoactive bowel sounds and soft to palpation Extremity normal capillary refill General Extremity: no tenderness to palpation of joints or extremities; Negative for edema Skin no rashes or lesions noted and no wounds General Skin Exam: no breakdown Neuro CN's II-XII intact bilaterally Psych affect normal Appearance: appropriate Lab / Micro Data 12/07/24 10:15 12/07/24 10:15 Labs: Laboratory Results - last 24 hr 12/06/24 18:27: Urine Color Yellow, Urine Clarity Clear, Urine pH 6.0, Ur Specific [place] 1.020, Urine Protein 30 H, Urine Glucose (UA) Normal, Urine Ketones Negative, Urine Occult Blood 25 H, Urine Nitrite Negative, Urine Bilirubin Negative, Urine Urobilinogen 8 H, Ur Leukocyte Esterase 25 H, Urine RBC 5-10 SEEN, Urine WBC 5-10 SEEN, Ur Squamous Epith Cells 0-5 SEEN, Urine Bacteria 1+, Urine Mucus 2+ 12/06/24 20:32: WBC 20.3 H, RBC 4.47 L, Hgb 14.3, Hct 41.3, MCV 92.4, MCH 32.0, MCHC 34.6, RDW Std Deviation 43.0, RDW Coeff of Jimi 12.7, Plt Count 466 H, MPV 9.4, Immature Gran % (Auto) 1.800 H, Neut % (Auto) 75.2 H, Lymph % (Auto) 11.4 L, [place] % (Auto) 10.2 H, Eos % (Auto) 0.8, Baso % (Auto) 0.6, Absolute Neuts (auto) 15.3 H, Absolute Lymphs (auto) 2.31, Nucleated RBC % 0, Differential Comment SCANNED, Diff Path Review February magdiel, Sodium 135 L, Potassium 4.0, Chloride 103, Carbon Dioxide 25.0, Anion Gap 7, BUN 12, Creatinine 0.70, Estim Creat Clear Calc 97.64, Est GFR (MDRD) Af Amer 145, Est GFR (MDRD) Non-Af 119, BUN/Creatinine Ratio 17.1, Glucose 87, Calcium 8.8, Total Bilirubin 0.30, Direct Bilirubin 0.12, AST 19, ALT 29, Alkaline Phosphatase 92, Total Protein 7.3, Albumin 2.9 L, Globulin 4.4 H 12/06/24 22:53: Lactic Acid 1.5 12/07/24 01:00: Blood Type A POSITIVE, Antibody Screen NEGATIVE 12/07/24 10:15: WBC 16.1 H, RBC 4.10 L, Hgb 13.0, Hct 37.9 L, MCV 92.4, MCH 31.7, MCHC 34.3, RDW Std Deviation 43.8, RDW Coeff of Jimi 12.8, Plt Count 423, MPV 9.0, Immature Gran % (Auto) 2.000 H, Neut % (Auto) 77.6 H, Lymph % (Auto) 9.8 L, [place] % (Auto) 9.5, Eos % (Auto) 0.7, Baso % (Auto) 0.4, Absolute Neuts (auto) 12.5 H, Absolute Lymphs (auto) 1.58, Nucleated RBC % 0, Differential Comment SCANNED, Diff Path Review February magdiel, Platelet Estimate SLT INC, RBC Morphology NORM C+C, Sodium 134 L, Potassium 3.9, Chloride 103, Carbon Dioxide 26.0, Anion Gap 5, BUN 9, Creatinine 0.74, Estim Creat Clear Calc 87.62, Est GFR (MDRD) Af Amer 137, Est GFR (MDRD) Non-Af 113, BUN/Creatinine Ratio 12.2, Glucose 87, Calcium 8.6 Micro: Microbiology 12/06/24 18:27 Urine, Clean Catch Urine Culture - Preliminary Culture exhibits no growth. Imaging Radiology Impression Testicular Ultrasound 12/06/24 18:11 IMPRESSION: Large palpable mass just lateral to the left testicle demonstrating internal solid component and arterial vascular flow. Differential diagnoses for peritesticular tumors include metastatic disease, plasmacytoma, leiomyosarcoma, or lymphoma. Surgical consultation recommended. Reading Location: [facility] Chest/Abdomen/Pelvis CT 12/06/24 20:16 IMPRESSION: 1. Thick-walled peripherally enhancing fluid collection in the left lateral scrotum containing a couple foci of gas and complex internal debris. Findings concerning for abscess. surgical consultation recommended. 2. Mildly prominent bilateral inguinal chain lymph nodes which may be reactive. No other adenopathy. 3. Mild reticulonodular opacities in the left upper lobe, likely infectious/inflammatory. 4. Several scattered bilateral punctate pulmonary nodules, largest measuring 4 mm in the left upper lobe. 12 month follow-up can be performed to ensure stability. 5. Enlarged prostate protruding into the bladder base. Correlate with PSA level. One or more dose reduction techniques were used (e.g., Automated exposure control, adjustment of the mA and/or kV according to patient size, use of iterative reconstruction technique). Reading Location: [facility]
--- NOTE | 2024-12-07 11:56 | CHAPLAIN ---
Type of Pastoral Visit _x__ Initial Visit ___ Follow-up Visit ___ On-call Visit ___ General Patient Visit ___ Spiritual Assessment ___ Family Conference ___ Bereavement ___ Rapid Response ___ Code Blue ___ Other (describe below) Pastoral Care Referral From _x__ Patient ___ Family ___ Nurse ___ Physician ___ Leather Leveler ___ Blade Changer ___ Other (describe below) Sacrament/Intervention _x__ Active listening ___ Anointing ___ Tenriism ___ Bereavement ___ Communion ___ Farheen exploration ___ _x__ Life review _x__ Prayer ___ Reconciliation ___ Sacrament of Sick ___ Supportive presence ___ Wedding ___ Other (describe below) Pastoral Comments patient is welcoming and talkative; pt immediately states his spiritual status and background; pt gives details about his medical condition and expresses gratitude for the good and kind staff; pt acknowledges a blessed life with little to be concerned about and that he would still be working if he hadn't had a medical issue in the recent past; 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
[2024-12-07 15:09] LABS: Pathologist Review Reviewed
--- NOTE | 2024-12-07 17:22 | PRE.ANES_ITS ---
ASA Classification* ASA Classification ASA Classification: 3 and E Assessment & Plan Anesthesia* Anesthesia Assessment Anesthesia Assessment: Discussed sedation and/or anesthesia options, risks, benefits, and alternatives with patient/parents/legal guardian/POA. Questions invited. The patient/parents/legal guardian/POA seems to understand and agrees to proceed with anesthesia plan. Reviewed the physical assessment, medical history, allergy history and patient home medications list prior to surgery/procedure/anesthetic and documented any changes. Performed airway and anesthesia risk assessments. Anesthesia Type Anesthesia Type: General History Source History Obtained from:: Patient and Chart Anesthesia Focused Assessment* Temperature: 97.3 F Pulse Rate: 60 Blood Pressure: 121/74 Respiratory Rate: 16 Pulse Ox: 96 Oxygen Delivery Method: Room Air Airway Assessment Mouth opens: >3 cm Mallampati Score: II Teeth Condition: Missing (Patient has multiple missing teeth. Few teeth that are left are tight.) Neck Range of motion (ROM): Limited ROM (Slight decrease in extension) Focused Labs Anesthesia Preop lab: CBC WBC 16.1 K/mm3 (4.4-11.0) H 12/07/24 10:15 5 RBC 4.10 M/mm3 (4.6-6.2) L 12/07/24 10:15 12/07/24 Hgb 13.0 g/dL (13.0-16.5) 12/07/24 10:15 12/07/24 Hct 37.9 % (40-54) L 12/07/24 10:15 12/07/24 Plt Count 423 K/mm3 (150-450) 12/07/24 10:15 12/07/24 CHEMISTRY Potassium 3.9 mmol/L (3.5-5.1) 12/07/24 10:15 12/07/24 Sodium 134 mmol/L (136-145) L 12/07/24 10:15 12/07/24 BUN 9 mg/dL (7-18) 12/07/24 10:15 12/07/24 Creatinine 0.74 mg/dL (0.70-1.30) 12/07/24 10:15 12/07/24 Glucose 87 mg/dL (74-106) 12/07/24 10:15 12/07/24 COAG Pre-Assessment Diagnosis/Proposed Procedure Planned Operative Procedure(s): Exploration of scrotal abscess Anesthesia History 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 When Was Last Pacemaker Check QUESTION #4 FULL TEXT: You/Your Family Experience fever (hyperthermia) with Anesthesia Last Oral Intake Last Oral intake: Last Oral Intake NPO since 00:00 12/07/24 12:50 Meds taken in AM with sips of No 12/07/24 12:50 water? Meds patient instructed to take am of surgery PONV PONV - composite bond technician: PONV - composite bond technician Female HX of Motion Sickness HX of N/V After Surgery Non-Smoker Duration of Surgery greater than 60 minutes Number of Risk Factors PONV Score Height & Weight Height & Weight: Anesthesia: Height & Weight Height 6 ft 12/07/24 12:50 Weight: 68.2 kg 12/07/24 12:50 Body Mass Index (BMI) 20.4 12/07/24 12:50 Respiratory Assessment Respiratory Assessment - composite bond technician: Respiratory Tract Infection Hx - composite bond technician Hx Respiratory Tract Infection No 12/07/24 12:50 STOP Sleep Apnea STOP Sleep Apnea - composite bond technician: STOP Sleep Apnea - composite bond technician Hx Hypertension No 12/06/24 23:54 Hx Sleep Apnea No 12/06/24 23:54 CPAP BIPAP Do you snore loudly (louder No 12/06/24 23:54 than talking or can be heard Do you often feel tired/ No 12/06/24 23:54 fatigued/ sleepy during daytime? Has anyone observed you stop No 12/06/24 23:54 breathing during sleep? STOP Results Negative 12/06/24 23:54 QUESTION #5 FULL TEXT : Do you snore loudly (louder than talking or can be heard through closed doors)? 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 Specify any problems Hx of Preganancy in last 3 N/A 12/06/24 23:54 Months Nurse Filling Out Transfusion [email or web address] 12/06/24 23:54 & Questions: Date: 12/07/24 12/06/24 23:54 Time: 00:17 12/06/24 23:54 Patient unable to answer at this time (ie. confused, unrespo /Reproduction History /Reproductive History - composite bond technician: /Reproductive Hx- composite bond technician Hx Now No 12/07/24 12:50 Gestational Age (in weeks): EDC: Hx Hx Para Hx Section SAB No 12/07/24 12:50 Active Medications Active Medications: Current Medications Generic Name Dose Route Start Last Admin Trade Name Freq PRN Reason Stop Dose Admin Albuterol/Ipratropium 3 ml 12/07/24 09:44 Ipratropium/Albuterol Sulfate 3 Ml Ampul.Neb INHALATION Q6H.RT PRN SOB &/OR WHEEZING Piperacillin Sod/Tazobactam 50 mls @ 12.5 mls/hr 12/07/24 06:00 12/07/24 13:59 Sod 3.375 gm/ Sodium Chloride IV 12.5 mls/hr Q8 JOHNNIE Administration Vancomycin IV-PHARMACY TO DOSE 500 mls @ 250 mls/hr 12/06/24 23:56 1 each/ Sodium Chloride IV PRN PRN Rx to Dose Protocol Pantoprazole Sodium 40 mg/ 110 mls @ 330 mls/hr 12/07/24 10:00 12/07/24 10:10 Sodium Chloride IV Infused DAILY JOHNNIE Infusion Vancomycin HCl 1,500 mg/ 530 mls @ 250 mls/hr 12/07/24 11:00 12/07/24 13:59 Sodium Chloride IV Infused Q12H JOHNNIE Infusion Ketorolac Tromethamine 15 mg 12/06/24 23:56 Ketorolac 15 Mg/Ml Vial IV 12/11/24 23:57 Q8H PRN PRN Pain 1-5/10 or Fever Nicotine 14 mg 12/06/24 23:56 12/07/24 08:09 Nicotine 14 Mg Patch TD Not Given DAILY JOHNNIE Ondansetron HCl 4 mg 12/06/24 23:56 Ondansetron 4 Mg/2 Ml Vial IV Q4H PRN PRN NAUSEA/VOMITING Sodium Chloride 10 - 40 ml 12/06/24 23:56 0.9% Saline Lock 10 Ml Syringe IV UD PRN SALINE FLUSH Vancomycin Protocol 1 lab 12/08/24 08:30 Vancomycin Trough/Random Due 12/08/24 12:30 DAILY JOHNNIE PFSH Home Medications ?Medication ?Instructions ?Recorded ?Last Taken ?Type NK 12/06/24 Unknown History Allergy/AdvReac Type Severity Reaction Status Date / Time No Known Allergies Allergy Verified 12/06/24 17:28 Surgical History H/O eye surgery Social History Smoking Status: Current every day smoker tobacco type: cigarettes Review of Systems (Anesthesia) ROS Narrative System reviewed and no additional complaints, except as documented.
[2024-12-07] MEDS: Lidocaine 1% /Epi 1:100 (20ml) 20 ML Vial (19:16)
--- NOTE | 2024-12-07 19:29 | PCM.OPRPT ---
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 Type of Anesthesia: Local MAC RN Documented Start/Stop Times: Operation Date: 12/07/24 16:40 Case Time Into Pre-Op 12/07/24 16:40 Anesthesia Start 12/07/24 19:02 Into Room 12/07/24 19:02 Procedure Start 12/07/24 19:16 Procedure End 12/07/24 19:27 Procedure Start Time: 19:16 Procedure Stop Time: 19:30 Select all DRAINS/GRAFTS/IMPLANTS that apply: None Estimated Blood Loss: 10cc did w Specimen collected: No Description of surgery: Is a 64-year-old male came to the hospital with an infected scrotal abscess taken to the surgery today to do incision and drainage of the scrotal abscess patient adamantly refused to go to under anesthesia so we tried to do this procedure under MAC local but I explained to the patient in preoperative setting that the scrotal abscess do not numb well with lidocaine because of the abscess infection in the ascitic environment but again he refused to undergo anesthesia so anesthesia only provided a little bit of sedation made this procedure quite difficult since the patient refused general anesthetic I tried to numb it as best as possible the lidocaine but again he refused a general anesthetic did complain about feeling a lot of the procedure during the entire procedure made an incision in the patient's hemiscrotum and drained out brian pus from the scrotum I then washed out the abscess pocket with the Pulsavac and then packed it with a Betadine soaked gauze fluffs and dressings were placed patient will need wet-to-dry dressings to allow this to heal properly which can start tomorrow Surgical Findings: Purulent abscess drained from the patient's left hemiscrotum Complications Complications: No Admit VTE Documentation VTE Present on Admission: No VTE Mechan Device Prophylaxis: SCD's VTE Pharm Prophylaxis ordered?: No
--- NOTE | 2024-12-07 19:39 | PCM.POST.ANE ---
Anesthesia: Postop Eval I Current Vital Signs Temperature: 98.5 F Pulse Rate: 82 Blood Pressure: 126/95 Respiratory Rate: 16 Pulse Ox: 97 Oxygen Delivery Method: Room Air Assessment Airway patent: Yes Spontaneous unlabored respirations: Yes Mental status: Awake and Calm nausea: No Vomiting: No Anesthesia Complication: No Fluid Hydration Crystalloid volume administer (ml): 500 Total IV fluid infused: 500 Progress Note Anesthesia document: Postop Eval 1 completed: Yes
--- NOTE | 2024-12-07 20:49 | PCM.POSTANE2 ---
Anesthesia Postop Eval I Sum Postop Eval Completion status Anesthesia document: Postop Eval 1 completed: Yes Anesthesia Postop Eval I Summary Anesthesia Postop Eval I Summary: Anesthesia Postop Eval I: Assessment Summary Airway patent Yes 12/07/24 19:41 Spontaneous unlabored Yes 12/07/24 19:41 respirations Mental status Awake,Calm 12/07/24 19:41 nausea No 12/07/24 19:41 Vomiting No 12/07/24 19:41 Anesthesia Postop Eval I: Fluid Summary Crystalloid volume administer 500 12/07/24 19:41 (ml) Colloids volume administered ( ml) Blood Product volume administered (ml) Total IV fluid infused 500 12/07/24 19:41 Anesthesia Postop Eval I: Summary Notes Anesthesia Complication No 12/07/24 19:41 Anesthesia Complication Comment: Post-operative progress note Anesthesia: Postop Eval II Evaluation Mental status: Awake and Calm Pain Level: 0 nausea: No Vomiting: No Complications Anesthesia Complication: No
[2024-12-08] VITALS: BP 103/59; PULSE 81; RESP 15; TEMP 36.2; O2SAT 94
[2024-12-08] MEDS: Vancomycin HCl 1,500 MG in 0.9% Normal Saline (500mL Bag) 500 ML 250 MG IV ×3 (01:13→23:35)
[2024-12-08 03:28] VITALS: BMI 20.3
[2024-12-08] MEDS: Piperacil/Tazobactam 3.375 GM in 0.9% Normal Saline (50mL MB+) 50 ML IV ×3 (05:41→21:31)
[2024-12-08 05:42] VITALS: BP 99/58; PULSE 58; RESP 15; TEMP 36.5; O2SAT 95
[2024-12-08] MEDS: Ketorolac 15 MG/ML Vial IV ×3 (06:07→22:23)
[2024-12-08 06:15] LABS: Absolute Lymphocyte Count 1.58 X10^3/uL (0.83-4.51); Absolute Neutrophil Count 8.6 X10^3/uL (2.0-7.7); Basophil# 0.09 X10^3/uL; Basophil% 0.8 % (0-1); Eosinophil# 0.11 X10^3/uL; Eosinophils% 0.9 % (0-5); Hematocrit 40.9 % (40-54); Hemoglobin 13.7 g/dL (13.0-16.5); Lymphocyte # 1.58 X10^3/ul (0.83-4.51); Lymphocyte % 13.6 % (19-41); Mean Corp Hgb Conc 33.5 g/dL (32-36); Mean Corpuscular Hgb 31.6 pg (27.0-32.0); Mean Corpuscular Volume 94.5 fL (80-94); Mean Platelet Vol. 8.8 fl (6.2-12.0); Monocyte# 1.01 X10^3/uL; Monocyte% 8.7 % (0-10); NRBC Flagged by Analyzer 0 % (0-5); Neutrophil % 73.7 % (47-70); Platelet Count 426 K/mm3 (150-450); RBC Distribution Width CV 12.5 % (11.6-14.6); RBC Distribution Width SD 43.8 fl (35.1-43.9); Red Blood Count 4.33 M/mm3 (4.6-6.2); White Blood Count 11.7 K/mm3 (4.4-11.0)
[2024-12-08 06:48] LABS: Anion Gap 5 (5-15); BUN 8 mg/dL (7-18); BUN/Creat Ratio 9.1 RATIO (10-20); Calcium,Total 8.9 mg/dL (8.5-10.1); Chloride 108 mmol/L (98-107); Creatinine, Serum 0.88 mg/dL (0.70-1.30); EST Glomerular Filtration Rate 92 mL/min (>60); Est Glom Filt Rate - Afr Amer 112 mL/min (>60); Estimated Creatinine Clearance 79.65 ml/min; Glucose 95 mg/dL (74-106); Sodium Level 138 mmol/L (136-145)
--- NOTE | 2024-12-08 08:29 | PCM.PN.HOSP ---
Reason for Visit Reason for Visit: Diagnoses Acute cystitis with hematuria (12/06/24) Inflammatory disorders of scrotum (12/06/24) Scrotal pain (12/06/24) Tobacco use (12/06/24) Subjective Subjective Doing ok. Acknowledges that he was concerned about GA because his brother was sick, got intubated a subsequent . Even though his brother (apparently) did not have surgery, but did have underlying malignancy. Objective Data Objective Data Vital Signs: Vital Signs Temp Pulse Resp BP Pulse Ox O2 Del Method 36.5 C L 58 L 15 99/58 L 95 Room Air 12/08/24 05:42 12/08/24 05:42 12/08/24 05:42 12/08/24 05:42 12/08/24 05:42 12/08/24 05:42 Oxygen Delivery Method Room Air Weight: 68.2 kg Body Mass Index (BMI) 20.3 Intake & Output: Intake and Output for Last 24 Hours 12/06/24 12/07/24 12/08/24 23:59 23:59 23:59 Intake Total 100 / 100 3015 / 3015 580 / 580 Balance 100 / 100 3015 / 3015 580 / 580 Lab / Micro Data 12/08/24 06:08 12/08/24 06:08 Labs: Laboratory Results - last 24 hr 12/06/24 20:32: Diff Path Review Reviewed 12/07/24 10:15: WBC 16.1 H, RBC 4.10 L, Hgb 13.0, Hct 37.9 L, MCV 92.4, MCH 31.7, MCHC 34.3, RDW Std Deviation 43.8, RDW Coeff of Jimi 12.8, Plt Count 423, MPV 9.0, Immature Gran % (Auto) 2.000 H, Neut % (Auto) 77.6 H, Lymph % (Auto) 9.8 L, [place] % (Auto) 9.5, Eos % (Auto) 0.7, Baso % (Auto) 0.4, Absolute Neuts (auto) 12.5 H, Absolute Lymphs (auto) 1.58, Nucleated RBC % 0, Differential Comment SCANNED, Diff Path Review May , Platelet Estimate SLT INC, RBC Morphology NORM C+C, Sodium 134 L, Potassium 3.9, Chloride 103, Carbon Dioxide 26.0, Anion Gap 5, BUN 9, Creatinine 0.74, Estim Creat Clear Calc 87.62, Est GFR (MDRD) Af Amer 137, Est GFR (MDRD) Non-Af 113, BUN/Creatinine Ratio 12.2, Glucose 87, Calcium 8.6 12/08/24 06:08: WBC 11.7 H, RBC 4.33 L, Hgb 13.7, Hct 40.9, MCV 94.5 H, MCH 31.6, MCHC 33.5, RDW Std Deviation 43.8, RDW Coeff of Jimi 12.5, Plt Count 426, MPV 8.8, Immature Gran % (Auto) 2.300 H, Neut % (Auto) 73.7 H, Lymph % (Auto) 13.6 L, [place] % (Auto) 8.7, Eos % (Auto) 0.9, Baso % (Auto) 0.8, Absolute Neuts (auto) 8.6 H, Absolute Lymphs (auto) 1.58, Nucleated RBC % 0, Sodium 138, Potassium 4.0, Chloride 108 H, Carbon Dioxide 25.0, Anion Gap 5, BUN 8, Creatinine 0.88, Estim Creat Clear Calc 79.65, Est GFR (MDRD) Af Amer 112, Est GFR (MDRD) Non-Af 92, BUN/Creatinine Ratio 9.1 L, Glucose 95, Calcium 8.9 Micro: Microbiology 12/06/24 18:27 Urine, Clean Catch Urine Culture - Preliminary Culture exhibits no growth. Physical Exam Const alert and no apparent distress Resp normal respiratory effort, no retractions, no use of accessory muscles and clear to auscultation bilaterally Cardio regular rate, regular rhythm, S1 normal heart sound and S2 normal heart sound GI normal to inspection, nondistended, normoactive bowel sounds, soft to palpation, non-tender and non-distended Neuro Sensorium / Orientation: awake Assessment & Plan Assessment/Plan (1) Abscess, scrotum: PLAN: CT notes 2.7x3.2 fluid collection with foci of gas abx w pip/tazo and vancomycin consultation. Pt declined general anesthesia, so was numbed as best as possible. Drained out brian puss and was washed out. Wet-to-dry dressings to allow this to heal properly. Follow up blood cultures. I called [facility] and they never received any samples from the surgery. (2) Bacteremia: PLAN: 1 of 2 sets positive for GPC in clusters. Repeat BCx PLAN: Plan VTE prophylaxis: SCDs. Charges/Coding Visit Charges Inpatient E&M: 36212 Subs Hosp L2
[2024-12-08 09:23] VITALS: BP 95/62; PULSE 62; RESP 16; TEMP 36.6; O2SAT 96
[2024-12-08] MEDS: Pantoprazole Sodium 40 MG in 0.9% Normal Saline (100mL MB+) 100 ML 330 MG IV (10:44)
[2024-12-08 11:33] VITALS: BP 99/66; PULSE 63; RESP 16; TEMP 36.8; O2SAT 95
[2024-12-08 12:13] LABS: Vancomycin, Trough Level 15.6 ug/mL (5.0-15.0)
[2024-12-08 16:14] VITALS: BP 106/60; PULSE 54; RESP 16; TEMP 36.7; O2SAT 96
[2024-12-08 20:46] VITALS: BP 103/72; PULSE 55; RESP 16; TEMP 36.6; O2SAT 97
[2024-12-09 02:41] VITALS: BP 106/87; PULSE 55; RESP 16; TEMP 36.6; O2SAT 96
[2024-12-09 04:59] VITALS: BMI 20.6
[2024-12-09] MEDS: Piperacil/Tazobactam 3.375 GM in 0.9% Normal Saline (50mL MB+) 50 ML IV ×3 (05:15→21:55)
[2024-12-09 06:20] LABS: Absolute Lymphocyte Count 2.11 X10^3/uL (0.83-4.51); Absolute Neutrophil Count 5.3 X10^3/uL (2.0-7.7); Basophil% 1.2 % (0-1); Eosinophil# 0.15 X10^3/uL; Eosinophils% 1.7 % (0-5); Hematocrit 36.7 % (40-54); Hemoglobin 12.1 g/dL (13.0-16.5); Lymphocyte # 2.11 X10^3/ul (0.83-4.51); Lymphocyte % 24.3 % (19-41); Mean Corpuscular Hgb 30.9 pg (27.0-32.0); Mean Corpuscular Volume 93.9 fL (80-94); Mean Platelet Vol. 9.1 fl (6.2-12.0); Monocyte# 0.79 X10^3/uL; Monocyte% 9.1 % (0-10); NRBC Flagged by Analyzer 0 % (0-5); Neutrophil # 5.28 X10^3/uL (2.7-7.7); Neutrophil % 60.7 % (47-70); Platelet Count 433 K/mm3 (150-450); RBC Distribution Width CV 12.8 % (11.6-14.6); RBC Distribution Width SD 43.9 fl (35.1-43.9); Red Blood Count 3.91 M/mm3 (4.6-6.2); White Blood Count 8.7 K/mm3 (4.4-11.0)
[2024-12-09 06:59] LABS: Anion Gap 5 (5-15); BUN 10 mg/dL (7-18); BUN/Creat Ratio 12.8 RATIO (10-20); Calcium,Total 8.3 mg/dL (8.5-10.1); Chloride 110 mmol/L (98-107); Creatinine, Serum 0.78 mg/dL (0.70-1.30); EST Glomerular Filtration Rate 106 mL/min (>60); Est Glom Filt Rate - Afr Amer 128 mL/min (>60); Estimated Creatinine Clearance 88.65 ml/min; Glucose 86 mg/dL (74-106); Potassium 3.8 mmol/L (3.5-5.1); Sodium Level 138 mmol/L (136-145)
--- NOTE | 2024-12-09 09:04 | PN.HOSP_ITS ---
Reason for Visit Reason for Visit: Diagnoses Acute cystitis with hematuria (12/06/24) Inflammatory disorders of scrotum (12/06/24) Scrotal pain (12/06/24) Bacteremia (12/06/24) Tobacco use (12/06/24) Subjective Subjective Scrotum feeling much better today. Was better able to tolerate dressing change today. Objective Data Objective Data Vital Signs: Vital Signs Temp Pulse Resp BP Pulse Ox O2 Del Method 36.6 C 55 L 16 106/87 H 96 Room Air 12/09/24 02:41 12/09/24 02:41 12/09/24 02:41 12/09/24 02:41 12/09/24 02:41 12/09/24 02:41 Oxygen Delivery Method Room Air Weight: 69 kg Body Mass Index (BMI) 20.6 Intake & Output: Intake and Output for Last 24 Hours 12/07/24 12/08/24 12/09/24 23:59 23:59 23:59 Intake Total 3015 / 3015 1670 / 1670 580 / 580 Balance 3015 / 3015 1670 / 1670 580 / 580 Lab / Micro Data 12/09/24 05:45 12/09/24 05:45 Labs: Laboratory Results - last 24 hr 12/08/24 10:15: Vancomycin Trough 15.6 H 12/09/24 05:45: WBC 8.7, RBC 3.91 L, Hgb 12.1 L, Hct 36.7 L, MCV 93.9, MCH 30.9, MCHC 33.0, RDW Std Deviation 43.9, RDW Coeff of Jimi 12.8, Plt Count 433, MPV 9.1, Immature Gran % (Auto) 3.000 H, Neut % (Auto) 60.7, Lymph % (Auto) 24.3, [place] % (Auto) 9.1, Eos % (Auto) 1.7, Baso % (Auto) 1.2 H, Absolute Neuts (auto) 5.3, Absolute Lymphs (auto) 2.11, Nucleated RBC % 0, Sodium 138, Potassium 3.8, Chloride 110 H, Carbon Dioxide 23.0, Anion Gap 5, BUN 10, Creatinine 0.78, Estim Creat Clear Calc 88.65, Est GFR (MDRD) Af Amer 128, Est GFR (MDRD) Non-Af 106, BUN/Creatinine Ratio 12.8, Glucose 86, Calcium 8.3 L Micro: Microbiology 12/06/24 22:00 Blood Culture (Wb) - Anticubital Left Bacteria Detection (PCR) - Final 12/06/24 22:00 Blood Culture (Wb) - Anticubital Left Blood Culture - Preliminary Gram positive organism 12/06/24 22:05 Blood Culture (Wb) - Anticubital Right Blood Culture - Preliminary No growth in 48 hours. 12/06/24 18:27 Urine, Clean Catch Urine Culture - Preliminary Culture exhibits no growth. Physical Exam Const alert and no apparent distress HEENT head/scalp atraumatic and moist oral mucous membranes Assessment & Plan Assessment/Plan (1) Abscess, scrotum: PLAN: CT notes 2.7x3.2 fluid collection with foci of gas abx w pip/tazo and vancomycin consultation. Pt declined general anesthesia, so was numbed as best as possible. Drained out brian puss and was washed out. Wet-to-dry dressings to allow this to heal properly. Follow up blood cultures. I called [facility] and they never received any samples from the surgery. (2) Bacteremia: PLAN: 1 of 2 sets positive for GPC in clusters. Suspect from scrotal cellulitis and abscess. Repeat BCx PLAN: Plan VTE prophylaxis: SCDs. Disposition: home if cultures from 12/08 are negative. Charges/Coding Visit Charges Inpatient E&M: 57694 Subs Hosp L1
[2024-12-09 09:45] VITALS: BP 101/64; PULSE 61; RESP 14; TEMP 36.8; O2SAT 97
[2024-12-09] MEDS: Pantoprazole Sodium 40 MG in 0.9% Normal Saline (100mL MB+) 100 ML 330 MG IV (10:11)
[2024-12-09] MEDS: Vancomycin HCl 1,500 MG in 0.9% Normal Saline (500mL Bag) 500 ML 250 MG IV (12:59)
[2024-12-09 17:21] VITALS: BP 111/69; PULSE 75; RESP 16; TEMP 36.6; O2SAT 96
[2024-12-09 20:30] VITALS: BP 137/75; PULSE 60; RESP 16; TEMP 36.8; O2SAT 99
[2024-12-10 00:38] LABS: Vancomycin, Trough Level 19.5 ug/mL (5.0-15.0)
--- NOTE | 2024-12-10 00:48 | PCM.RX.CS ---
Consult Antibiotic Management Pharmacy has been consulted to manage selected antibiotic: Vancomycin Type of Intervention Type of Consult: Follow-up Suspected Infection Suspected Infection: Sepsis Labs Labs: Sodium 138 mmol/L (136-145) 12/09/24 05:45 Potassium 3.8 mmol/L (3.5-5.1) 12/09/24 05:45 Chloride 110 mmol/L (98-107) H 12/09/24 05:45 Carbon Dioxide 23.0 mmol/L (21.0-32.0) 12/09/24 05:45 Anion Gap 5 (5-15) 12/09/24 05:45 BUN 10 mg/dL (7-18) 12/09/24 05:45 Creatinine 0.78 mg/dL (0.70-1.30) 12/09/24 05:45 Est GFR (MDRD) Af Amer 128 mL/min (>60) 12/09/24 05:45 Est GFR (MDRD) Non-Af 106 mL/min (>60) 12/09/24 05:45 BUN/Creatinine Ratio 12.8 RATIO (10-20) 12/09/24 05:45 Glucose 86 mg/dL (74-106) 12/09/24 05:45 Vancomycin Trough 19.5 ug/mL (5.0-15.0) H 12/10/24 00:12 Microbiology Microbiology: Microbiology 12/06/24 18:27 Urine, Clean Catch Urine Culture - Final Mixed Gram Positive Organisms 12/06/24 22:00 Blood Culture (Wb) - Anticubital Left Bacteria Detection (PCR) - Final 12/06/24 22:00 Blood Culture (Wb) - Anticubital Left Blood Culture - Preliminary Gram positive organism 12/06/24 22:05 Blood Culture (Wb) - Anticubital Right Blood Culture - Preliminary No growth in 48 hours. Dosing Weight Weight used for dosin kg Estimated Creatinine Clearance Estimated Creatinine Clearance: 89 Goal Trough Goal Trough: 15-20 mcg/mL Pharmacy Plan for Drug Dosing Pharmacy Plan for Drug Dosing: Vancomycin trough level of 19.5, drawn 11.25hrs post-dose, was within the target range of 15-20. Will continue dosing at 1500mg q12h, and will draw another trough in three days. Pharmacy Service will continue to monitor and adjust dosing as required. Follow-Up Labs Follow-Up Labs: Trough: Vancomycin Date/Time Labs Ordered Labs to be done on [date and time ordered]: 12/13/24 @0000
[2024-12-10] MEDS: Vancomycin HCl 1,500 MG in 0.9% Normal Saline (500mL Bag) 500 ML 250 MG IV ×2 (00:58→12:35)
[2024-12-10 02:10] VITALS: BP 128/85; PULSE 58; RESP 16; TEMP 36.6; O2SAT 98
[2024-12-10] MEDS: Piperacil/Tazobactam 3.375 GM in 0.9% Normal Saline (50mL MB+) 50 ML IV ×3 (05:39→21:18)
[2024-12-10 06:00] VITALS: BMI 21.6
--- NOTE | 2024-12-10 07:16 | PCM.PN.GU ---
Subjective Subjective Status post incision and drainage of scrotal abscess the incision and the wound is nice and clean continue wet-to-dry dressings. Objective Data Objective Data Vital Signs: Vital Signs Temp Pulse Resp BP Pulse Ox O2 Del Method 98 F 58 L 16 128/85 H 98 Room Air 12/10/24 02:10 12/10/24 02:10 12/10/24 02:10 12/10/24 02:10 12/10/24 02:10 12/10/24 02:10 Oxygen Delivery Method Room Air Weight: 72.5 kg Body Mass Index (BMI) 21.6 Intake & Output: Intake and Output for Last 24 Hours 12/08/24 12/09/24 12/10/24 23:59 23:59 23:59 Intake Total 1670 / 1670 1870 / 1870 580 / 580 Balance 1670 / 1670 1870 / 1870 580 / 580 Lab / Micro Data 12/09/24 05:45 12/09/24 05:45 Labs: Laboratory Results - last 24 hr 12/10/24 00:12: Vancomycin Trough 19.5 H Micro: Microbiology 12/06/24 18:27 Urine, Clean Catch Urine Culture - Final Mixed Gram Positive Organisms 12/06/24 22:00 Blood Culture (Wb) - Anticubital Left Bacteria Detection (PCR) - Final 12/06/24 22:00 Blood Culture (Wb) - Anticubital Left Blood Culture - Preliminary Gram positive organism 12/06/24 22:05 Blood Culture (Wb) - Anticubital Right Blood Culture - Preliminary No growth in 48 hours.
[2024-12-10 10:12] VITALS: BP 117/71; PULSE 52; RESP 16; TEMP 36.6; O2SAT 96
[2024-12-10] MEDS: Pantoprazole Sodium 40 MG in 0.9% Normal Saline (100mL MB+) 100 ML 330 MG IV (10:30)
[2024-12-10 14:33] VITALS: BP 126/80; PULSE 52; RESP 16; TEMP 36.7; O2SAT 99
--- NOTE | 2024-12-10 14:35 | PCM.CONS.GEN ---
Assessment & Plan Assessment/Plan (1) Abscess, scrotum: PLAN: 1 of 2 bcx with micrococcus, consistent with contaminant. On vanc.zosyn s/p scrotal I&D. Cont abx, plan on short course po at discharge. will follow, thank you HPI Consult Data Date of Consult: 12/10/24 HPI Narrative Reason for Consultation: scrotal abscess HPI Narrative: ANA TAPIA, is a 64 M with h/o tobacco abuse, presented with several weeks progressive scrotal pain, swelling. No fever. No known inciting event, no drainage. Came to ED, admitted on vanc/zosyn, taken to OR by Dr. Hickey for I&D. Feeling better, no n/v/d. Full ROS performed and neg except as noted above. PFSH Home Medications ?Medication ?Instructions ?Recorded ?Last Taken ?Type NK 12/06/24 Unknown History Allergy/AdvReac Type Severity Reaction Status Date / Time No Known Allergies Allergy Verified 12/06/24 17:28 Surgical History H/O eye surgery Social History Smoking Status: Current every day smoker tobacco type: cigarettes Physical Exam Const alert, oriented x3 and no apparent distress General Appearance: cooperative HEENT normocephalic and head/scalp atraumatic Eyes PERRL and EOMs intact bilaterally Neck supple and No nodes Resp normal air movement and clear to auscultation bilaterally Cardio regular rate and regular rhythm GI soft to palpation, non-tender and non-distended Extremity General Extremity: Negative for edema Skin Skin Narrative: bandage over scrotum, some induration Neuro CN's II-XII intact bilaterally Lab / Micro Data Attestation: I reviewed the patient's lab results. 12/09/24 05:45 12/09/24 05:45 Labs: Laboratory Results - last 24 hr 12/10/24 00:12: Vancomycin Trough 19.5 H Micro: Microbiology 12/06/24 22:00 Blood Culture (Wb) - Anticubital Left Bacteria Detection (PCR) - Final 12/06/24 22:00 Blood Culture (Wb) - Anticubital Left Blood Culture - Final Micrococcus luteus/lylae 12/06/24 18:27 Urine, Clean Catch Urine Culture - Final Mixed Gram Positive Organisms
[2024-12-10 16:06] LABS: Pathologist Review Reviewed
--- NOTE | 2024-12-10 16:17 | CASEMGMT ---
HARDY CM into pt room, pt lying in bed in no distress. Discussed with pt wound care and who would be performing dressing changes. Pt states that his son will learn this as he is very clean and meticulous. Pt states his son will be in shortly to visit. He will notify the nurse when son comes so that his son can watch/learn dressing change. Updated pt nurse on the plan. Pt is aware of where he will be able to get supplies. He denies need for any HHC at this time.
--- NOTE | 2024-12-10 16:49 | PCM.PN.HOSP ---
Reason for Visit Reason for Visit: Diagnoses Acute cystitis with hematuria (12/06/24) Inflammatory disorders of scrotum (12/06/24) Scrotal pain (12/06/24) Bacteremia (12/06/24) Tobacco use (12/06/24) Objective Data Objective Data Vital Signs: Vital Signs Temp Pulse Resp BP Pulse Ox O2 Del Method 98.0 F 52 L 16 126/80 H 99 Room Air 12/10/24 14:33 12/10/24 14:33 12/10/24 14:33 12/10/24 14:33 12/10/24 14:33 12/10/24 14:33 Oxygen Delivery Method Room Air Weight: 159 lb 13.362 oz Body Mass Index (BMI) 21.6 Intake & Output: Intake and Output for Last 24 Hours 12/08/24 12/09/24 12/10/24 23:59 23:59 23:59 Intake Total 1670 / 1670 1870 / 1870 1270 / 1270 Balance 1670 / 1670 1870 / 1870 1270 / 1270 Lab / Micro Data 12/09/24 05:45 12/09/24 05:45 Labs: Laboratory Results - last 24 hr 12/07/24 10:15: Diff Path Review Reviewed 12/10/24 00:12: Vancomycin Trough 19.5 H Micro: Microbiology 12/06/24 22:00 Blood Culture (Wb) - Anticubital Left Bacteria Detection (PCR) - Final 12/06/24 22:00 Blood Culture (Wb) - Anticubital Left Blood Culture - Final Micrococcus luteus/lylae 12/06/24 18:27 Urine, Clean Catch Urine Culture - Final Mixed Gram Positive Organisms 12/06/24 22:05 Blood Culture (Wb) - Anticubital Right Blood Culture - Preliminary No growth in 48 hours. Physical Exam Narrative Seen and examined. Scrotal dressing was changed in the morning. Decrease in the purulent discharge as per the patient. Patient still has pain around the scrotal area. No fever. Physical exam General: Alert, Oriented x3, Cooperative HEENT: Atraumatic, PERRLA, EOMI, Normocephalic Oral: No Gingival or Mucosal Lesions/ Ulcerations Neck: Supple, No JVD, Negative Carotid Bruits Chest wall/Lungs: Air entry diminished in bilateral lung bases. No crepitation/rhonchi Cardiovascular: Regular rate, Regular Rhythm, Normal S1, Normal S2, No M/G/R Abdomen: Bowel Sounds Present, Soft, Non Tender, Non-Distended : Scrotal dressing status post drainage on the left side scrotal wall. Tenderness present. No suprapubic tenderness. Extremities: No edema, Capillary Refill Less than 3 Seconds Skin: No rashes, No breakdown Musculoskeletal: No Tenderness to Palpation of Joints or Extremities Neurological: Cranial nerves II-XII grossly intact, DTR 2+/4. No acute focal neurological deficit. Psych/Mental Status: Normal Affect, Appropriate. Assessment & Plan Assessment/Plan (1) Abscess, scrotum: PLAN: CT notes 2.7x3.2 fluid collection with foci of gas abx w pip/tazo and vancomycin consultation and patient had incision and drainage with wound nice and clean. On wet-to-dry dressing. Patient does not have local wound culture from the OR. It was checked from the microbiology lab. ID consulted. Advised to continue vancomycin and Zosyn we will plan for discharge on oral antibiotics. (2) Bacteremia: PLAN: 1 of 2 sets positive for GPC in clusters resulted micrococcus. Suspect from scrotal cellulitis and abscess. [place]. Most likely contamination. PLAN: Plan VTE prophylaxis: SCDs. Disposition: home if cultures from 12/08 are negative. Charges/Coding Visit Charges Inpatient E&M: 81598 Subs Hosp L2
[2024-12-10 22:00] VITALS: BP 117/71; PULSE 59; RESP 16; TEMP 36.7; O2SAT 99
[2024-12-10] MEDS: Ketorolac 15 MG/ML Vial IV (22:18)
[2024-12-10] MEDS: 0.9% Saline Lock 10 ML Syringe IV (22:19)
[2024-12-11] MEDS: Vancomycin HCl 1,500 MG in 0.9% Normal Saline (500mL Bag) 500 ML 250 MG IV ×2 (01:09→12:38)
[2024-12-11 04:00] VITALS: BP 115/68; PULSE 48; RESP 16; TEMP 36.4; O2SAT 94
[2024-12-11 05:32] VITALS: BMI 23.6
[2024-12-11] MEDS: Piperacil/Tazobactam 3.375 GM in 0.9% Normal Saline (50mL MB+) 50 ML IV (06:00)
[2024-12-11] MEDS: Ketorolac 15 MG/ML Vial IV (06:19)
[2024-12-11] MEDS: 0.9% Saline Lock 10 ML Syringe IV (06:20)
[2024-12-11 06:39] LABS: Absolute Lymphocyte Count 2.24 X10^3/uL (0.83-4.51); Absolute Neutrophil Count 5.8 X10^3/uL (2.0-7.7); Basophil# 0.04 X10^3/uL; Basophil% 0.4 % (0-1); Eosinophils% 2.2 % (0-5); Hematocrit 37.7 % (40-54); Hemoglobin 12.2 g/dL (13.0-16.5); Lymphocyte # 2.24 X10^3/ul (0.83-4.51); Lymphocyte % 24.6 % (19-41); Mean Corp Hgb Conc 32.4 g/dL (32-36); Mean Corpuscular Hgb 30.7 pg (27.0-32.0); Mean Corpuscular Volume 94.7 fL (80-94); Monocyte% 7.7 % (0-10); NRBC Flagged by Analyzer 0 % (0-5); Neutrophil # 5.78 X10^3/uL (2.7-7.7); Neutrophil % 63.3 % (47-70); POSITIVE MORPHOLOGY YES; Platelet Count 467 K/mm3 (150-450); RBC Distribution Width CV 12.8 % (11.6-14.6); RBC Distribution Width SD 44.2 fl (35.1-43.9); Red Blood Count 3.98 M/mm3 (4.6-6.2); White Blood Count 9.1 K/mm3 (4.4-11.0)
[2024-12-11 06:44] LABS: Differential Indicated SCAN CRITERIA MET
[2024-12-11 07:44] LABS: Atypical Lymphocyte 1+ %; Differential Comment SCANNED
[2024-12-11 08:00] VITALS: BP 123/74; PULSE 54; RESP 16; TEMP 36.6; O2SAT 98
[2024-12-11 08:44] LABS: Anion Gap 4 (5-15); BUN 8 mg/dL (7-18); BUN/Creat Ratio 10.2 RATIO (10-20); Calcium,Total 8.6 mg/dL (8.5-10.1); Chloride 112 mmol/L (98-107); Creatinine, Serum 0.78 mg/dL (0.70-1.30); EST Glomerular Filtration Rate 105 mL/min (>60); Est Glom Filt Rate - Afr Amer 127 mL/min (>60); Estimated Creatinine Clearance 99.69 ml/min; Glucose 82 mg/dL (74-106); Potassium 3.8 mmol/L (3.5-5.1); Sodium Level 142 mmol/L (136-145)
[2024-12-11 10:00] VITALS: O2SAT 98
[2024-12-11] MEDS: Pantoprazole Sodium 40 MG in 0.9% Normal Saline (100mL MB+) 100 ML 330 MG IV (10:14)
--- NOTE | 2024-12-11 10:17 | DCINST_ITS ---
Discharge Instructions Diet Discharge Diet: No restrictions DC O2, CPAP, BIPAP needs Home O2 Discharge instructions: No Dressing / Incision Discharge Activity: Return to Normal Activity Weight Bearing Status: Weight bearing as tolerated Dressing / Incision Call your doctor if you observe: Fever of 101 or Higher, Coldness, Increased Pain, Numbness or Tingling, Change in Color, Inability to urinate, Inability to have a bowel movement, Shortness of breath, Dizziness, Fainting spells, Swelling in the ankles, Chest pain, Prolonged hiccupping, Increased palpitations (irregular heartbeat) and Calf discomfort Follow Up Care When: IN 2 WEEKS Test Results: Test results from this visit will be discussed in further detail at your follow- up appointment, if applicable. Discharge Plan Admission Admit Date/Time: 12/06/24 22:33 Attending Provider: Rajat Cano Primary Care Provider: Care Physician,No Primary Consulting Providers: Delmer Fang; Ty Hickey; Seb Boone; Markus Armstrong Instructions Additional Instructions / Restrictions: Advised to scrotal dressing twice daily wet-to-dry. Advised scrotal support while in a standing position or walking. Discharge Orders/Prescriptions Prescriptions: New amoxicillin-pot clavulanate 875-125 mg tablet 1 tab PO BID 7 Days Qty: 14 0RF doxycycline monohydrate 100 mg capsule 100 mg PO BID 7 Days Qty: 14 0RF Referrals / Follow Up: Ty Hickey MD [Med Staff - Active Staff] - Within 1 Week (Follow-up for his scrotal abscess status post I&D.) Care Physician,No Primary [Primary Care Provider] - In 1 Week Disposition Disposition (needs filled in before D/C Order can be placed): Home, Self Care
--- NOTE | 2024-12-11 12:21 | DS.PCM_ITS ---
Providers Date of Admission: 12/06/24 Date of Discharge: 12/11/24 Primary Care Physician: Karla Primary Care Phys Consultations 12/06/24 23:56 Consult: Lining [employer] Hand / Pulmonary Medicine Routine Consulting Provider: Intensivists/Pulmonary Med Reason for Consult: Sepsis 2/2 Scrotal Abscess. EMERGENT Consult: No Notified: Yes Date Notified: 12/06/24 Time Notified: 22:38 Method of Notification: Text Consult: Urology Routine Consulting Provider: Ty Hickey Reason for Consult: Sepsis 2/2 Scrotal Abscess. EMERGENT Consult: No MD Notified: Yes Date Notified: 12/06/24 Time Notified: 22:37 Method of Notification: ED Physician Initiated 12/10/24 10:53 Consult: Infectious Disease Routine Consulting Provider: Markus Armstrong Reason for Consult: Blood culture on GPC in cluster, micrococcus. Scrotal abscess EMERGENT Consult: No MD Notified: Yes Date Notified: 12/10/24 Time Notified: 10:53 Method of Notification: Text Reason For Visit: SEPSIS 2/2 SCROTAL ABSCESS & ACUTE CYSTITIS Diagnosis Discharge Diagnosis (1) Abscess, scrotum: Status: Acute Code(s): N49.2 - Inflammatory disorders of scrotum Plan: This 64-year-old gentleman was admitted with left scrotal swelling/mass. Patient recently had small bump just posterior lateral to left testicle for decades. It got progressively swollen recently and more painful. Patient is also a long-term smoker. Denies fever. He was diagnosed with scrotal abscess. CT notes 2.7x3.2 fluid collection with foci of gas abx w pip/tazo and vancomycin consultation and patient had incision and drainage with wound nice and clean. On wet-to-dry dressing. Patient does not have local wound culture from the OR. It was checked from the microbiology lab. ID consulted. Advised to continue vancomycin and Zosyn we will plan for discharge on oral antibiotics. 12/11: Wound was checked. It is healing well status post incision and drainage. Granulation tissue seen. Discussed with ID. Discharged on 1 week of Augmentin 875 mg twice daily and doxycycline 100 mg twice daily. Follow-up urology clinic in 1 week. Follow with PCP (2) Bacteremia: Status: Acute Code(s): R78.81 - Bacteremia Plan: 1 of 2 sets positive for GPC in clusters resulted micrococcus. Suspect from scrotal cellulitis and abscess. [place]. Most likely contamination. Discussed with ID and bacteremia was contamination. Plan VTE prophylaxis: SCDs. Disposition: home if cultures from 12/08 are negative. Discharge medication reconciliation done. Discharge follow-up instructions completed. Discharge process discussed with the patient and all questions were answered to patient's satisfaction. Follow with PCP in 1 to 2 weeks Total time spent, exact 35 minutes on discharge meds reconciliation, examination, coordination of care with nurses and ancillary staff, review of imaging and blood test and discussion with the patient on follow-up instructions. Medications at Discharge Home Medications amoxicillin 875 mg-potassium clavulanate 125 mg tablet 1 tab PO BID 1 week #14 tabs 12/11/24 doxycycline monohydrate 100 mg capsule 100 mg PO BID 1 week #14 caps 12/11/24 Physical Exam Narrative Seen and examined. Scrotal area was inspected and examined. It is healing well. No purulent drainage. No fever. Mild. Physical exam General: Alert, Oriented x3, Cooperative HEENT: Atraumatic, PERRLA, EOMI, Normocephalic Oral: No Gingival or Mucosal Lesions/ Ulcerations Neck: Supple, No JVD, Negative Carotid Bruits Chest wall/Lungs: Air entry diminished in bilateral lung bases. No crepitation/rhonchi Cardiovascular: Regular rate, Regular Rhythm, Normal S1, Normal S2, No M/G/R Abdomen: Bowel Sounds Present, Soft, Non Tender, Non-Distended : Status post incision and drainage. Granulation tissue seen. Healing. Mild tenderness present. No suprapubic tenderness. Extremities: No edema, Capillary Refill Less than 3 Seconds Skin: No rashes, No breakdown Musculoskeletal: No Tenderness to Palpation of Joints or Extremities Neurological: Cranial nerves II-XII grossly intact, DTR 2+/4. No acute focal neurological deficit. Psych/Mental Status: Normal Affect, Appropriate. Weight / BMI Weight Weight: 174 lb 2.643 oz Body Mass Index (BMI) 23.6 ABG / Lab / Microbiology Data 12/11/24 05:24 12/11/24 05:24 Laboratory: Laboratory Results - last 24 hr 12/07/24 10:15: Diff Path Review Reviewed 12/11/24 05:24: WBC 9.1, RBC 3.98 L, Hgb 12.2 L, Hct 37.7 L, MCV 94.7 H, MCH 30.7, MCHC 32.4, RDW Std Deviation 44.2 H, RDW Coeff of Jimi 12.8, Plt Count 467 H, MPV 9.0, Immature Gran % (Auto) 1.800 H, Neut % (Auto) 63.3, Lymph % (Auto) 24.6, [place] % (Auto) 7.7, Eos % (Auto) 2.2, Baso % (Auto) 0.4, Absolute Neuts (auto) 5.8, Absolute Lymphs (auto) 2.24, Nucleated RBC % 0, Differential Comment SCANNED, Atypical Lymphocytes 1+, Sodium 142, Potassium 3.8, Chloride 112 H, Carbon Dioxide 26.0, Anion Gap 4 L, BUN 8, Creatinine 0.78, Estim Creat Clear Calc 99.69, Est GFR (MDRD) Af Amer 127, Est GFR (MDRD) Non-Af 105, BUN/Creatinine Ratio 10.2, Glucose 82, Calcium 8.6 Microbiology: Microbiology 12/08/24 15:20 Blood Culture (Wb) - Right Hand Blood Culture - Preliminary No growth in 48 hours. 12/08/24 15:15 Blood Culture (Wb) - Anticubital Right Blood Culture - Preliminary No growth in 48 hours. 12/06/24 22:00 Blood Culture (Wb) - Anticubital Left Bacteria Detection (PCR) - Final 12/06/24 22:00 Blood Culture (Wb) - Anticubital Left Blood Culture - Final Micrococcus luteus/lylae 12/06/24 18:27 Urine, Clean Catch Urine Culture - Final Mixed Gram Positive Organisms 12/06/24 22:05 Blood Culture (Wb) - Anticubital Right Blood Culture - Preliminary No growth in 48 hours. D/C Instructions Discharge Diet: No restrictions Weight Bearing Status: Weight bearing as tolerated Call your doctor if you observe: Fever of 101 or Higher, Coldness, Increased Pain, Numbness or Tingling, Change in Color, Inability to urinate, Inability to have a bowel movement, Shortness of breath, Dizziness, Fainting spells, Swelling in the ankles, Chest pain, Prolonged hiccupping, Increased palpitations (irregular heartbeat) and Calf discomfort DC O2, CPAP, BIPAP Needs Home O2 Discharge instructions: No When: IN 2 WEEKS Meaningful Use Info Meaningful Use Meaningful Use Diagnoses (Choose all that apply): None applicable Ischemic Stroke Statin Dosing Therapy Reference: STATIN DOSE THERAPY REFERENCE: * Patients > 75 years receive moderate or high dose statin therapy. * Patients 75 years or YOUNGER should receive HIGH intensity statin dose unless contraindicated. You will be required to document reason for non-treatment if statin daily dose does not meet guidelines. HIGH DOSE STATIN THERAPY DAILY Atorvastatin > than or = to 40 mg Rosuvastatin > than or = to 20 mg Amlodipine + Atorvastatin > than or = to 2.5/40 mg Ezetimibe + Simvastatin 10/80 mg Simvastatin 80mg Discharge Plan Admission Admit Date/Time: 12/06/24 22:33 Attending Provider: Rajat Cano Primary Care Provider: Care Physician,No Primary Consulting Providers: Delmer Fang; Ty Hickey; Seb Boone; Markus Armstrong Instructions Additional Instructions / Restrictions: Advised to scrotal dressing twice daily wet-to-dry. Advised scrotal support while in a standing position or walking. Discharge Orders/Prescriptions Prescriptions: New amoxicillin-pot clavulanate 875-125 mg tablet 1 tab PO BID 7 Days Qty: 14 0RF doxycycline monohydrate 100 mg capsule 100 mg PO BID 7 Days Qty: 14 0RF Referrals / Follow Up: Ty Hickey MD [Med Staff - Active Staff] - Within 1 Week (Follow-up for his scrotal abscess status post I&D.) Care Physician,No Primary [Primary Care Provider] - In 1 Week Disposition Disposition (needs filled in before D/C Order can be placed): Home, Self Care Charges/Coding Visit Charges Inpatient E&M: 47711 Disch Hosp >30min
--- NOTE | 2024-12-11 12:28 | CASEMGMT ---
Addendum entered by Belgica Terrazas 12/11/24 15:58: Pt nurse aware if pt son is comfortable with dressing change, pt may dc. Addendum entered by Belgica Terrazas 12/11/24 14:48: Pt son has not arrived yet. Original Note: HARDY SEYMOUR noted pt has dc order in. Spoke with pt nurse, pt son did not come in for teaching of wound care yesterday. HARDY SEYMOUR into pt room, pt states that his son will be here within a couple of hours to learn dressing change. Pt nurse aware. HARDY SEYMOUR to follow post dressing change.
--- NOTE | 2024-12-11 12:56 | PCM.PN.ID ---
Physical Exam Narrative Feeling better, less pain, no fever, no n/v/d. Const alert and no apparent distress Resp normal air movement and clear to auscultation bilaterally Cardio regular rate and regular rhythm GI soft to palpation, non-tender and non-distended Skin Skin Narrative: Improved scrotal swelling ID ID: Route of nutrition/ use of supplements: [] Nutritional Intake: [] IV Site: [] Lerner Catheter: [] Assessment & Plan Assessment/Plan (1) Abscess, scrotum: PLAN: 1 of 2 bcx with micrococcus, consistent with contaminant. On vanc/zosyn s/p scrotal I&D. Cont abx, plan on one week po doxy and augmentin at discharge. will follow, d/w Dr. Cano
[2024-12-11 13:24] VITALS: BP 131/77; PULSE 59; RESP 16; TEMP 36.7; O2SAT 97
--- NOTE | 2024-12-11 15:20 | PHA.DC_ITS ---
Pharmacy [facility] has performed discharge medication reconciliation and counseling for this patient. 1. AMOXICILLIN/CLAVULANATE 875MG PO BID X 7 DAYS 2. DOXYCYCLINE 100MG PO BID X 7 DAYS The patient's discharge medication list was reviewed for discrepancies and discrepancies were resolved. The patient was counseled on the following discharge medications and changes in medications for homegoing were reviewed. The Reason for Use, instructions for use, and potential side effects were reviewed for all new medications. The patient's questions regarding all of their medications were answered. The patient was able to verbally demonstrate an understanding of their discharge medications. Medications at Discharge Home Medications amoxicillin 875 mg-potassium clavulanate 125 mg tablet 1 tab PO BID 1 week #14 tabs 12/11/24 doxycycline monohydrate 100 mg capsule 100 mg PO BID 1 week #14 caps 12/11/24
== END 2024-12-11 18:51 | disposition home or self-care (01) | DRG 727 ==
LOC: ED 22:42 → ICU 23:22 → MS3 12-07 17:42
PROVIDERS: Internal Medicine Critical Care Medicine; Urology; Admitting Provider Internal Medicine; Emergency Provider Emergency Medicine; Referring Provider Emergency Medicine; Visit Provider Internal Medicine
PROC: 0V953ZZ Drainage of Scrotum, Percutaneous Approach (ICD-10-PCS; principal; 2024-12-07 16:30)
DX: N49.2 Inflammatory disorders of scrotum (principal); E43 Unspecified severe protein-calorie malnutrition; R78.81 Bacteremia; L02.214 Cutaneous abscess of groin; N30.01 Acute cystitis with hematuria; F17.210 Nicotine dependence, cigarettes, uncomplicated; N50.89 Other specified disorders of the male genital organs; N50.82 Scrotal pain; R91.8 Other nonspecific abnormal finding of lung field; Z68.23 Body mass index [BMI] 23.0-23.9, adult
CPT/HCPCS: 36415; 71260; 74177; 76870; 80048; 80076; 80202; 81001; 83605; 85025; 86850; 86900; 86901; 87040; 87077; 87086; 87088; 87149; 93976; 99284; 99406; Q9967; A4216; J2405